=== PATIENT | female | born 1985 | race Caucasian/White ===

== ENCOUNTER → 2016-10-02 | Day surgery (SDC) | payer OTHER ==
[~2016-10-02] MED LIST: CLON1TAB PO; FENTANYL PF 100 MCG/2 ML VIAL. IV PRN; HYDROMORPHONE 2 MG/ML VIAL. IV PRN; IV RINGERS,LACTATED 1000ML 1,000 ML IV SCH; LIDOCAINE 1% 1 ML SYRINGE. ID PRN; LIDOCAINE 2% PF Vial for OR 5 ML VIAL. ONE; LURA40TA PO; MORPHINE SULFATE 2 MG/ML DISP.SYRIN. IV PRN; ONDANSETRON PF 4 MG/2 ML VIAL. IV PRN; PROCHLORPERAZINE 10 MG/2 ML VIAL. IV PRN; PROPOFOL 20 ML IV ONE
[2016-10-02 08:08] LABS: NEG OBC UR NEG; POS OBC UR POS
[2016-10-02 09:40] VITALS: BP 113/73
== END | disposition home or self-care (01) ==
LOC: ENDOS 07:08
PROVIDERS: ATTEND Internal Medicine Gastroenterology
DX: K64.0 First degree hemorrhoids (principal); I10 Essential (primary) hypertension; F41.9 Anxiety disorder, unspecified; F32.9 Major depressive disorder, single episode, unspecified; Z87.898 Personal history of other specified conditions; Z83.3 Family history of diabetes mellitus; Z72.89 Other problems related to lifestyle; Z85.3 Personal history of malignant neoplasm of breast
CPT/HCPCS: 45378; 81025; J2704

== ENCOUNTER 2016-10-10 14:22 | Inpatient (IN) | payer OTHER ==
[~2016-10-10] VITALS: Ht 162.6 cm; Wt 69.9 kg
[~2016-10-10 14:22] MED LIST changes: -FENTANYL PF 100 MCG/2 ML VIAL. IV PRN; -HYDROMORPHONE 2 MG/ML VIAL. IV PRN; -IV RINGERS,LACTATED 1000ML 1,000 ML IV SCH; -LIDOCAINE 1% 1 ML SYRINGE. ID PRN; -LIDOCAINE 2% PF Vial for OR 5 ML VIAL. ONE; -MORPHINE SULFATE 2 MG/ML DISP.SYRIN. IV PRN; -ONDANSETRON PF 4 MG/2 ML VIAL. IV PRN; -PROCHLORPERAZINE 10 MG/2 ML VIAL. IV PRN; -PROPOFOL 20 ML IV ONE
[2016-10-10 17:10] VITALS: BP 147/94
[2016-10-10] MEDS ORDERED: ONDA4TAB10 PO (18:38)
[2016-10-10] MEDS ORDERED: TRAZ50TA15 PO (18:39)
[2016-10-10] MEDS ORDERED: IBUP-1060 PO (18:39)
[2016-10-10] MEDS ORDERED: KETOROLAC 15 MG/ML VIAL. IV PRN (18:45)
[2016-10-10] MEDS ORDERED: ONDANSETRON PF 4 MG/2 ML VIAL. IV PRN (18:45)
[2016-10-10] MEDS ORDERED: DIPHENHYDRAMINE 50 MG/ML VIAL IVP PRN (18:45)
[2016-10-10 19:00] VITALS: BP 143/93
[2016-10-10] MEDS ORDERED: KETOROLAC TROMETHAMINE 30 MG/ML SYRINGE. IV PRN (19:17)
[2016-10-10] MEDS: PIPERACILLIN/TAZOBACTAM 4.5 GM in IV NORMAL SALINE 100ML 100 ML IV SCH (19:55)
[2016-10-10] MEDS: HYDROMORPHONE 2 MG/ML VIAL. IV PRN (19:55)
[2016-10-10] MEDS ORDERED: PROMETHAZINE 25 MG in IV NORMAL SALINE 50ML 50 ML IV PRN (22:15)
[2016-10-10 23:00] VITALS: BP 134/89
[2016-10-10] MEDS: CLONAZEPAM 1 MG TABLET PO PRN (23:17)
[2016-10-10] MEDS: LORAZEPAM 2 MG/ML VIAL IV PRN (23:32)
--- NOTE | 2016-10-11 01:49 | DS ---
DATE OF DISCHARGE: HISTORY OF PRESENT ILLNESS: The patient was admitted with left thigh abscess that was apparently incised at the Emergency Room of [facility], was discharged home. However, she continued to have severe pain, redness, tenderness, and was admitted here on 10/08/2016. We did actually ultrasound at that time, which did not show any drainable abscess; however, we repeated her ultrasound this morning and it showed that she has an elongated hypoechoic subcutaneous process that has developed, measuring approximately 3.2 x 3.9 x 0.7 cm in greatest dimension, it is oriented obliquely, extending approximately 2.5 cm deep to the skin surface, appearance is compatible with complex fluid such as an abscess or hematoma. We did start her on IV antibiotic in the form of Zyvox and Zosyn, and given that we do not have an operating room here, decision was made to transfer her to [facility] to consult the surgical team as well as the Infectious Disease team. PHYSICAL EXAMINATION: GENERAL: When I saw her today, she looked well and was clearly in no apparent respiratory distress, pale, but no jaundice, cyanosis or thyromegaly. No jugular venous distension. No limb edema. VITAL SIGNS: Her heart rate was 84, blood pressure was 114/78, temperature was 97.9, respiratory rate was 18 and oxygen saturation was 97% on room air. The rest of clinical examination is unremarkable. LABORATORY DATA: Her lab work showed a white cell count down to 6300, hemoglobin 10.4, hematocrit 30.9, MCV 91, and platelet count 235,000. Chemistries showed a serum sodium of 139, potassium of 3.6, chloride of 105, bicarbonate of 28, anion gap of 6, BUN of 3, creatinine of 0.7, estimated GFR was 98 mL per minute. Her glucose 116, calcium was 8. Total bilirubin, AST, ALT, alkaline phosphatase are normal. Total protein was 6.5, albumin 2.7. ASSESSMENT AND PLAN: Cellulitis and abscess in the inner aspect of the left thigh. The plan is to transfer to [facility], continue with IV antibiotic, consult the surgical team for incision and drainage as well as the Infectious Disease team, and hopefully, she can be discharged home to continue her IV antibiotics as an outpatient. BROOKE VENCES MD DR: DOMINIQUE/zach JOB#: [id number] / [id number]
[2016-10-11 03:00] VITALS: BP 136/79
[2016-10-11 05:20] LABS: BASO % 1 % (0-3); EOS % 8 % (0-3); HEMATOCRIT 32.8 % (36.0-47.0); LYMPH # 1.2 x10^3/uL (1.0-4.8); LYMPH % 20 % (24-48); MEAN CORPUSCULAR HEMOGLOBIN 30 pg (25-35); MEAN CORPUSCULAR HGB CONC 33 g/dL (31-37); MEAN CORPUSCULAR VOLUME 91 fL (79-100); MONO % 10 % (0-9); NEUT % 61 % (31-73); PLATELET COUNT 280 x10^3/uL (140-400); RED BLOOD COUNT 3.61 x10^6/uL (3.50-5.40); RED CELL DISTRIBUTION WIDTH 13.9 % (11.5-14.5); WHITE BLOOD COUNT 6.1 x10^3/uL (4.0-11.0)
[2016-10-11 05:29] LABS: INR 1.1 (0.8-1.1); PROTHROMBIN TIME PATIENT 13.7 SEC (11.7-14.0)
[2016-10-11 05:38] LABS: ALBUMIN 2.8 g/dL (3.4-5.0); ALBUMIN/GLOBULIN RATIO 0.8 (1.0-1.7); CALCIUM 8.6 mg/dL (8.5-10.1); CREATININE 0.8 mg/dL (0.6-1.0); GFR 84.2; POTASSIUM 4.5 mmol/L (3.5-5.1); TOTAL BILIRUBIN 0.3 mg/dL (0.2-1.0); TOTAL PROTEIN 6.2 g/dL (6.4-8.2)
[2016-10-11] MEDS: PIPERACILLIN/TAZOBACTAM 4.5 GM in IV NORMAL SALINE 100ML 100 ML IV SCH (06:03)
[2016-10-11 07:57] VITALS: BP 125/78
[2016-10-11] MEDS ORDERED: LURASIDONE 40 MG TABLET. PO SCH (08:00)
[2016-10-11] MEDS: CLONAZEPAM 1 MG TABLET PO PRN (08:03)
[2016-10-11] MEDS: LORAZEPAM 2 MG/ML VIAL IV PRN (08:07)
--- NOTE | 2016-10-11 08:17 | PDOC2 ---
YONG ALVARADO Cosme [employer] 10/11/16 0817: CONSULT Date of Consult Date of Consult DATE: 10/11/16 TIME: 08:10 Reason for Consult Reason for Consult: thigh abscess Referring Physician Referring Physician: Dr Brandon Identification/Chief Complaint Chief Complaint thigh abscess Source Source: Chart review, Patient History of Present Illness Reason for Visit: 4 day history of thigh abscess. Had it lanced in ER at [facility], however continued to swell and cause pain. She was admitted to [facility], found by US to have a abscess. Sent to [facility] for surgery. Reports no history of skin infections, no eliciting events Past Medical History Cardiovascular: HTN Heme/Onc: Cancer (breast) Psych: Anxiety, Bipolar, Depression Past Surgical History Past Surgical History: Other (breast reconstruction ) Family History Family History: Other (noncontributory to current illness ) Social History <1 pack per day ALCOHOL: none Drugs: None Lives: Alone Current Medications Current Medications Current Medications Clonazepam (Klonopin) 1 mg PRN BID PRN PO ANXIETY / AGITATION Last administered on 10/11/16 08:03; Start 10/10/16 at 18:45 Diphenhydramine HCl (Benadryl) 25 mg PRN Q6HRS PRN IVP ITCHING; Start 10/10/16 at 18:45 Hydromorphone HCl (Dilaudid) 2 mg PRN Q2HR PRN IV PAIN Last administered on 10/10 19:55; Start 10/10/16 at 18:45 Ketorolac Tromethamine 30 mg 30 mg PRN Q6HRS PRN IV PAIN; Start 10/10/16 at 18: 45; Stop 10/10/16 at 19:17; Status DC Linezolid (Zyvox Premix) 300 ml @ 300 mls/hr Q12HR IV Last administered on 10/10 21:12; Start 10/10/16 at 21:00 Lorazepam (Ativan) 1 mg PRN Q8HRS PRN IV ANXIETY / AGITATION Last administered on 10/11/16 08:07; Start 10/10/16 at 18:45 Lurasidone HCl (Latuda) 40 mg DAILYWBKFT PO ; Start 10/11/16 at 08:00 Ondansetron HCl 4 mg 4 mg PRN Q8HRS PRN IV NAUSEA/VOMITING Last administered on 10/11/16 05:19; Start 10/10/16 at 18:45 Piperacillin Sod/ Tazobactam Sod/ Sodium Chloride (Zosyn/Iv Sodium Chloride 0.9 % 100ml) 100 ml @ 200 mls/hr Q8HRS IV Last administered on 10/11/16 06:03; Start 10/10/16 at 20:00 Ketorolac Tromethamine 30 mg 30 mg PRN Q6HRS PRN IV PAIN Last administered on 05:10; Start 10/10/16 at 19:17; Stop 10/15/16 at 18:44 Promethazine HCl/ Sodium Chloride (Phenergan/Iv Sodium Chloride 0.9% 50ml) 51 ml @ 151.5 mls/ hr PRN Q6HRS PRN IV NAUSEA/VOMITING 2ND CHOICE; Start 10/10/16 at 22:15 Active Scripts Active Reported Trazodone Hcl 50 Mg Tablet 75 Mg PO HS Ibuprofen 800 Mg Tablet 800 Mg PO PRN Q8HRS PRN Zofran Odt (Ondansetron) 4 Mg Tab.rapdis 4 Mg PO BID PRN Latuda (Lurasidone Hcl) 40 Mg Tablet 40 Mg PO HS Klonopin (Clonazepam) 1 Mg Tablet 1 Mg PO PRN QID PRN Allergies Allergies: Coded Allergies: vancomycin (Verified Adverse Reaction, Intermediate, Rash, 10/10/16) "Red man" rxn ROS General: YES: Chills, Other (fevers) PSYCHOLOGICAL ROS: YES: Anxiety, Depression Eyes: No Blurry vision, No Double vision HEENT: No: Heacaches, Sore Throat Hematological and Lymphatic: No: Bleeding Problems, Blood Clots Respiratory: No: Cough, Shortness of breath Cardiovascular: No Chest Pain, No Palpitations Gastrointestinal: No Nausea, No Vomiting Genitourinary: No Dysuria, No Hematuria Musculoskeletal: Yes Muscle Pain, No Joint Pain Neurological: No Impaired Coord/balance, No Numbness/Tingling Skin: Yes Other (see hpi) Physical Exam General: Alert, Oriented X3, Cooperative, No acute distress HEENT: PERRLA, Mucous membr. moist/pink Lungs: Clear to auscultation, Normal air movement Heart: Regular rate, Normal S1, Normal S2, No murmurs Abdomen: Soft, No tenderness, Other (noted scars from breast reconstruction surgery ) Extremities: No clubbing, No cyanosis Skin: Other (left medial thigh with erythema, induration, and fluctunace, tender to touch) Neuro: Normal gait, Normal speech Psych/Mental Status: Mental status NL, Mood NL Vitals VITALS Vital Signs Date Time Temp Pulse Resp B/P Pulse Ox O2 Delivery O2 Flow Rate FiO2 10/11/16 07:57 97.7 97 20 125/78 98 Room Air 97.7 Labs Labs Laboratory Tests Test 10/11/16 04:50 White Blood Count 6.1x10^3/uL (4.0-11.0) Red Blood Count 3.61x10^6/uL (3.50-5.40) Hemoglobin 11.0g/dL (12.0-15.5) Hematocrit 32.8% (36.0-47.0) Mean Corpuscular Volume 91fL (79-100) Mean Corpuscular Hemoglobin 30pg (25-35) Mean Corpuscular Hemoglobin Concent 33g/dL (31-37) Red Cell Distribution Width 13.9% (11.5-14.5) Platelet Count 280x10^3/uL (140-400) Neutrophils (%) (Auto) 61% (31-73) Lymphocytes (%) (Auto) 20% (24-48) Monocytes (%) (Auto) 10% (0-9) Eosinophils (%) (Auto) 8% (0-3) Basophils (%) (Auto) 1% (0-3) Neutrophils # (Auto) 3.7x10^3uL (1.8-7.7) Lymphocytes # (Auto) 1.2x10^3/uL (1.0-4.8) Monocytes # (Auto) 0.6x10^3/uL (0.0-1.1) Eosinophils # (Auto) 0.5x10^3/uL (0.0-0.7) Basophils # (Auto) 0.0x10^3/uL (0.0-0.2) Prothrombin Time 13.7SEC (11.7-14.0) Prothromb Time International Ratio 1.1 (0.8-1.1) Activated Partial Thromboplast Time 41SEC (24-38) Sodium Level 141mmol/L (136-145) Potassium Level 4.5mmol/L (3.5-5.1) Chloride Level 105mmol/L (98-107) Carbon Dioxide Level 28mmol/L (21-32) Anion Gap 8 (6-14) Blood Urea Nitrogen 3mg/dL (7-20) Creatinine 0.8mg/dL (0.6-1.0) Estimated GFR (Cockcroft-Gault) 84.2 BUN/Creatinine Ratio 4 (6-20) Glucose Level 91mg/dL (70-99) Calcium Level 8.6mg/dL (8.5-10.1) Total Bilirubin 0.3mg/dL (0.2-1.0) Aspartate Amino Transf (AST/SGOT) 10U/L (15-37) Alanine Aminotransferase (ALT/SGPT) 15U/L (14-59) Alkaline Phosphatase 76U/L (46-116) Total Protein 6.2g/dL (6.4-8.2) Albumin 2.8g/dL (3.4-5.0) Albumin/Globulin Ratio 0.8 (1.0-1.7) Laboratory Tests Test 10/11/16 04:50 White Blood Count 6.1x10^3/uL (4.0-11.0) Red Blood Count 3.61x10^6/uL (3.50-5.40) Hemoglobin 11.0g/dL (12.0-15.5) Hematocrit 32.8% (36.0-47.0) Mean Corpuscular Volume 91fL (79-100) Mean Corpuscular Hemoglobin 30pg (25-35) Mean Corpuscular Hemoglobin Concent 33g/dL (31-37) Red Cell Distribution Width 13.9% (11.5-14.5) Platelet Count 280x10^3/uL (140-400) Neutrophils (%) (Auto) 61% (31-73) Lymphocytes (%) (Auto) 20% (24-48) Monocytes (%) (Auto) 10% (0-9) Eosinophils (%) (Auto) 8% (0-3) Basophils (%) (Auto) 1% (0-3) Neutrophils # (Auto) 3.7x10^3uL (1.8-7.7) Lymphocytes # (Auto) 1.2x10^3/uL (1.0-4.8) Monocytes # (Auto) 0.6x10^3/uL (0.0-1.1) Eosinophils # (Auto) 0.5x10^3/uL (0.0-0.7) Basophils # (Auto) 0.0x10^3/uL (0.0-0.2) Prothrombin Time 13.7SEC (11.7-14.0) Prothromb Time International Ratio 1.1 (0.8-1.1) Activated Partial Thromboplast Time 41SEC (24-38) Sodium Level 141mmol/L (136-145) Potassium Level 4.5mmol/L (3.5-5.1) Chloride Level 105mmol/L (98-107) Carbon Dioxide Level 28mmol/L (21-32) Anion Gap 8 (6-14) Blood Urea Nitrogen 3mg/dL (7-20) Creatinine 0.8mg/dL (0.6-1.0) Estimated GFR (Cockcroft-Gault) 84.2 BUN/Creatinine Ratio 4 (6-20) Glucose Level 91mg/dL (70-99) Calcium Level 8.6mg/dL (8.5-10.1) Total Bilirubin 0.3mg/dL (0.2-1.0) Aspartate Amino Transf (AST/SGOT) 10U/L (15-37) Alanine Aminotransferase (ALT/SGPT) 15U/L (14-59) Alkaline Phosphatase 76U/L (46-116) Total Protein 6.2g/dL (6.4-8.2) Albumin 2.8g/dL (3.4-5.0) Albumin/Globulin Ratio 0.8 (1.0-1.7) Assessment/Plan Assessment/Plan left thigh abscess anxiety, depression tobaccoism plan for I&D today EPI LOEV MD 10/11/16 1684: CONSULT Allergies Allergies: Coded Allergies: vancomycin (Verified Adverse Reaction, Intermediate, Rash, 10/10/16) "Red man" rxn Assessment/Plan Assessment/Plan Patient seen and examined by me. Several days of left thigh pain and swelling had drainage in ED 4 days ago but has returned. Left thigh mass erythema. Left thigh abscess plan I&D. YONG ALVARADO [employer] Oct 11, 2016 08:17 EPI LOVE MD Oct 11, 2016 08:32
[2016-10-11] MEDS ORDERED: ONDANSETRON PF 4 MG/2 ML VIAL. ONE (08:27)
[2016-10-11] MEDS ORDERED: DEXAMETHASONE SOD PHOS 20 MG/5 ML VIAL. ONE (08:27)
[2016-10-11] MEDS ORDERED: FENTANYL PF 100 MCG/2 ML VIAL. ONE (08:27)
[2016-10-11] MEDS ORDERED: PROPOFOL 20 ML IV ONE (08:27)
[2016-10-11] MEDS ORDERED: SEVOFLURANE 31 TO 60 MINUTES. IH ONE (08:27)
[2016-10-11] MEDS ORDERED: FAMOTIDINE 20 MG/2 ML VIAL ONE (08:45)
[2016-10-11] MEDS ORDERED: LIDOCAINE 2% 100 MG/5 ML DISP.SYRIN. ONE (08:45)
[2016-10-11] MEDS ORDERED: BUPIVACAINE-EPI 0.25%-1:200000 MPF 30 ML VIAL. ONE (08:52)
--- NOTE | 2016-10-11 09:02 | PDOC ---
BRIEF OPERATIVE NOTE Date: Oct 11, 2016 Pre-Op Diagnosis Left thigh abscess Post-Op Diagnosis Same Procedure Performed I&D Left thigh abscess Surgeon Bryson Anesthesia Type: General Blood Loss 10ml Specimens Obtained Cultures Findings as above Complications None Additional Remarks Patient maybe D/C today to F/U with wound care daily packing [facility] outpatient as she gets her outpatient IV antibiotic. EPI LOVE MD Oct 11, 2016 09:02
--- NOTE | 2016-10-11 09:04 | DISCH ---
DISCHARGE INSTRUCTIONS Condition on Discharge Condition on Discharge: Stable Activity After Discharge Activity Instructions for Disc: Activity as tolerated Diet after Discharge Diet after Discharge: Regular Contacting the DRAngie after DC Call your doctor for: If your condition worsens Follow-Up Follow up with: Dr Love on Sunday 10/15 EPI LOVE MD Oct 11, 2016 09:04
[2016-10-11] MEDS ORDERED: IV RINGERS,LACTATED 1000ML 1,000 ML IV SCH ×2 (09:17→09:19)
[2016-10-11] MEDS ORDERED: LIDOCAINE 1% 1 ML SYRINGE. ID PRN ×2 (09:30)
[2016-10-11] MEDS ORDERED: MORPHINE SULFATE 2 MG/ML DISP.SYRIN. IV PRN ×2 (09:30)
[2016-10-11] MEDS ORDERED: PROCHLORPERAZINE 10 MG/2 ML VIAL. IV PRN ×2 (09:30)
[2016-10-11] MEDS ORDERED: HYDROMORPHONE 2 MG/ML VIAL. IV PRN ×2 (09:30)
[2016-10-11] MEDS ORDERED: ONDANSETRON PF 4 MG/2 ML VIAL. IV PRN ×2 (09:30)
[2016-10-11] MEDS ORDERED: FENTANYL PF 100 MCG/2 ML VIAL. IV PRN (09:30)
[2016-10-11] MEDS: FENTANYL PF 100 MCG/2 ML VIAL. IV PRN ×2 (09:52→10:06)
[2016-10-11 10:20] VITALS: BP 118/80
[2016-10-11 10:30] VITALS: BP 136/76
[2016-10-11 10:45] VITALS: BP 124/89
--- NOTE | 2016-10-11 10:56 | PDOC ---
Infectious Disease Note ROS ROS GEN: Denies fevers, chills, sweats HEENT: Denies blurred vision, sore throat CV: Denies chest pain RESP: Denies shortness of air, cough GI: Denies n/v/d NEURO: Denies confusion, dizziness MSK: Denies weakness, joint pain/swelling Vital Sign Vital Signs Vital Signs Date Time Temp Pulse Resp B/P Pulse Ox O2 Delivery O2 Flow Rate FiO2 10/11/16 10:10 96.9 78 20 154/97 99 Room Air 96.9 10/11/16 09:19 10 Physical Exam PHYSICAL EXAM GENERAL: NAD, Alert HEENT: PERRL, OC/OP NECK: Supple, no JVD, no LN LUNGS: Clear HEART: S1S2, no gallop, no murmur ABD: Soft, NT, no organomegaly, no rebound EXT: No edema, no cyanosis RANCH HAND LIVESTOCK: Alert, oriented x 3, no focal neurologic deficit SKIN: No rash IV: ok Labs Lab Laboratory Tests Test 10/11/16 04:50 White Blood Count 6.1x10^3/uL (4.0-11.0) Red Blood Count 3.61x10^6/uL (3.50-5.40) Hemoglobin 11.0g/dL (12.0-15.5) Hematocrit 32.8% (36.0-47.0) Mean Corpuscular Volume 91fL (79-100) Mean Corpuscular Hemoglobin 30pg (25-35) Mean Corpuscular Hemoglobin Concent 33g/dL (31-37) Red Cell Distribution Width 13.9% (11.5-14.5) Platelet Count 280x10^3/uL (140-400) Neutrophils (%) (Auto) 61% (31-73) Lymphocytes (%) (Auto) 20% (24-48) Monocytes (%) (Auto) 10% (0-9) Eosinophils (%) (Auto) 8% (0-3) Basophils (%) (Auto) 1% (0-3) Neutrophils # (Auto) 3.7x10^3uL (1.8-7.7) Lymphocytes # (Auto) 1.2x10^3/uL (1.0-4.8) Monocytes # (Auto) 0.6x10^3/uL (0.0-1.1) Eosinophils # (Auto) 0.5x10^3/uL (0.0-0.7) Basophils # (Auto) 0.0x10^3/uL (0.0-0.2) Prothrombin Time 13.7SEC (11.7-14.0) Prothromb Time International Ratio 1.1 (0.8-1.1) Activated Partial Thromboplast Time 41SEC (24-38) Sodium Level 141mmol/L (136-145) Potassium Level 4.5mmol/L (3.5-5.1) Chloride Level 105mmol/L (98-107) Carbon Dioxide Level 28mmol/L (21-32) Anion Gap 8 (6-14) Blood Urea Nitrogen 3mg/dL (7-20) Creatinine 0.8mg/dL (0.6-1.0) Estimated GFR (Cockcroft-Gault) 84.2 BUN/Creatinine Ratio 4 (6-20) Glucose Level 91mg/dL (70-99) Calcium Level 8.6mg/dL (8.5-10.1) Total Bilirubin 0.3mg/dL (0.2-1.0) Aspartate Amino Transf (AST/SGOT) 10U/L (15-37) Alanine Aminotransferase (ALT/SGPT) 15U/L (14-59) Alkaline Phosphatase 76U/L (46-116) Total Protein 6.2g/dL (6.4-8.2) Albumin 2.8g/dL (3.4-5.0) Albumin/Globulin Ratio 0.8 (1.0-1.7) Objective Assessment Left thigh abscess s/p I and D 10/11. Local I and D in [facility] ER 10/07 Vanc allergy ? alex's with flushing of face neck MRSA - tetra/zyvox/Bactrim 10/07 - Called [facility] d/w micro. [facility] micro with [facility] from 10/09 H/o breast CA Bipolar Plan Plan of Care D/c Zosyn Change to Po zyvox would treat for another 6 days # [id number] NANCI ROTHMAN MD Oct 11, 2016 10:56
[2016-10-11] MEDS: HYDROMORPHONE 2 MG/ML VIAL. IV PRN (11:28)
[2016-10-11] MEDS ORDERED: LINE600T PO (11:40)
[2016-10-11] MEDS ORDERED: OXYC-323 PO (11:41)
--- NOTE | 2016-10-11 11:57 | OP ---
DATE OF SURGERY: 10/11/2016 PREOPERATIVE DIAGNOSIS: Left thigh abscess. POSTOPERATIVE DIAGNOSIS: Left thigh abscess. PROCEDURE: Incision and drainage of the left thigh abscess. SURGEON: Saravanan Love M.D. INDICATIONS: The patient is a 31-year-old female who was admitted to the hospital with an enlarging abscess of the left thigh. Procedure of incision and drainage was explained to the patient in detail. Risks, benefits were also discussed including bleeding and infection. Alternatives of the procedure were also discussed with the patient who seemed to understand and gave a verbal consent to have the procedure performed. DESCRIPTION OF PROCEDURE: The patient was taken to the operating room and placed in the supine position. General anesthesia was initiated. Once the patient was asleep and intubated, her thigh and groin were prepped and draped in usual sterile fashion using Betadine scrub and solution. An area over the abscess was incised with an 11 blade scalpel. Copious amounts of purulent material were expressed. This was cultured. Wound was then irrigated with copious amounts of normal saline. Electrocautery was used for hemostasis. Once this has been thoroughly irrigated, the wound was packed with quarter inch iodoform Nu Gauze and dressed with ____ Medipore tape. The patient was awakened, extubated in the operating room, taken to recovery in stable condition. All sponge, instrument counts listed as correct. Estimated blood loss 10 mL. SARAVANAN LOVE MD DR: MORALES/zach JOB#: [id number] / [id number] henok Brandon Dr.
--- NOTE | 2016-10-11 13:50 | SSS ---
ADMIT DATE: HISTORY OF PRESENT ILLNESS: The patient is a 31-year-old female patient, who was seen initially at the Emergency Room of [facility]. It was last there and was discharged home to continue with pain medications and oral antibiotic. However, she came back to [facility] Emergency Room with a complaint of severe pain, redness, tenderness and was admitted on, 10/08/2016. An ultrasound was done initially showed no evidence of drainable abscess; however, we repeat her ultrasound yesterday morning and it showed that she has an elongated hypoechoic subcutaneous process that has developed, measuring approximately 3.2 x 3.9 x 0.7 cm in greatest dimension, it is oriented obliquely, extending approximately 2.5 cm deep to the skin surface, appearance is compatible with complex fluid such as an abscess or hematoma. She has had the PICC line and was started on IV Zyvox and Zosyn. She has reacted to vancomycin. She did very well. She needs surgical incision, she was transferred to [facility] and was in fact seen by the surgical team and underwent incision and drainage of left thigh abscess and the specimen was sent for culture and sensitivity. She was seen also in consultation by the Infectious Disease Team and apparently the cultures from her abscess at [facility], grow methicillin-resistant Staphylococcus aureus sensitive to Zyvox and therefore, a decision was made to discharge her home to follow as an outpatient at [facility] on a daily basis to changes to continue with pain medication as well as antibiotics for at least 6 more days. PHYSICAL EXAMINATION: GENERAL: When I examined her today, she looked well and was clearly in no apparent respiratory distress, pale, but no jaundice, cyanosis or thyromegaly. No jugular venous distension. No limb edema. VITAL SIGNS: Her heart rate was 78, blood pressure 154/97, temperature was 96.9, respiratory rate was 20, and oxygen saturation was 99%. The rest of clinical examination is unremarkable ____ left thigh abscess is covered with dressing. LABORATORY DATA: Her lab work this morning showed a white cell count of 6000, hemoglobin 11, hematocrit 33, MCV 91, and platelet count of 280,000. Her chemistry showed a serum sodium 141, potassium 4.5, chloride 105, bicarbonate 28, anion gap of 8, BUN 3, creatinine 0.8, estimated GFR was 84 mL per minute. Her glucose was 91, calcium was 8.6. Total bilirubin, AST, ALT, alkaline phosphatase were normal. Her total protein was 6.2, albumin 2.8. Her prothrombin time was 13.7, INR 1.1, aPTT was 41. She will be discharged home to continue with Zyvox 600 mg twice a day for 6 more days, Percocet 1-2 tablets every 6 hours as needed. She should follow at the [facility] for daily dressing changes. FINAL DISCHARGE DIAGNOSES: Left thigh abscess, status post incision and drainage, growing methicillin-resistant Staphylococcus aureus sensitive to Zyvox. BROOKE VENCES MD DR: DOMINIQUE/zach JOB#: [id number] / [id number]
[2016-10-11] MEDS ORDERED: LINEZOLID 600 MG TABLET PO SCH (21:00)
--- NOTE | 2016-10-12 06:37 | CONS ---
DATE OF CONSULTATION: 10/11/2016 ROOM: 428. REQUESTING PHYSICIAN: Jason Brandon MD. REASON FOR CONSULTATION: Abscess. HISTORY OF PRESENT ILLNESS: The patient is a pleasant 31-year-old female with history of bipolar disease, also has a history of breast cancer in 2014, underwent bilateral mastectomies and reconstructions with multiple procedures. She did not receive any chemotherapy or radiation. Friday, she noted her left thigh has somewhat of a swollen area and became more painful. She presented to [facility] on the and had her wound lanced and was discharged on Bactrim. Cultures were obtained. Despite taking the Bactrim, Friday, she had increasing pain. She was having fevers, chills, sweats, nausea, vomiting, some diarrhea and dehydration. She went to see her primary care physician initially and she looked somewhat lethargic and tired. He referred her to [facility] where she was admitted and evaluated and also had some drainage obtained from her wound and she was transferred to [facility]. She had been given some vancomycin, but apparently she has some flushing and she was placed on Zyvox and Zosyn. She is now status post I and D of the left thigh abscess from this morning. Her wound is now currently dressed postoperatively. PAST MEDICAL HISTORY: Positive for above-mentioned breast cancer. Also, history of bipolar disorder. PAST SURGICAL HISTORY: Positive for tonsillectomy, adenoidectomies, oral surgery and the bilateral mastectomies and reconstruction. REVIEW OF SYSTEMS: Otherwise negative except for mentioned above. ALLERGIES: LISTED VANCOMYCIN, BUT I BELIEVE IT IS MORE OF RED MAN SYNDROME IT CAUSED FLUSHING OF HER FACE AND NECK. SOCIAL HISTORY: She is a smoker. She does not work. Denies any alcohol. FAMILY HISTORY: Negative for breast cancer. States that her grandfather did have an infection on his foot, but unsure of what the organisms were, but he was a diabetic. CURRENT MEDICATIONS: IV Zyvox and Zosyn. She is on Toradol, Dilaudid, Pepcid, Latuda. Other meds are available, I have reviewed in the chart. PHYSICAL EXAMINATION: VITAL SIGNS: She is afebrile, temperature 96.9, pulse 78, respirations 20, blood pressure 154/97, satting 99% on room air. CONSTITUTIONAL: She is pleasant, cooperative. She is in no acute distress. HEENT: Pupils are equal and reactive. She has normal conjunctivae. Oral cavity, oropharynx was clear. NECK: Supple, no JVD. LUNGS: Clear to auscultation bilaterally. HEART: S1, S2. ABDOMEN: Soft, nontender, nondistended with positive bowel sounds. EXTREMITIES: No clubbing, cyanosis. Her left thigh is dressed. There is an outline from previous area of erythema that is completely resolved. SKIN: Warm to touch. She does have tattoos. NEUROLOGIC: She is nonfocal and appropriate. Answers questions appropriately, moves all extremities. LABORATORY DATA: White count 6.1, hemoglobin 11, platelets of 280, neutrophils 61, lymphs are 20. Glucose 91, creatinine of 0.8 with normal liver function study tests. IMPRESSION: 1. Left thigh abscess, status post I and D today, had local I and D in [facility] on the . 2. 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 3. Positive methicillin-resistant Staphylococcus aureus culture. This was discussed with Missael rivera this morning, actually with [facility], which is sensitive to tetracycline and Zyvox as well as Bactrim from the . 4. We did discuss with [facility] as well and she has a gram-positive cocci, currently growing, identification is pending. 5. History of breast cancer as mentioned above. 6. Bipolar. RECOMMENDATIONS: For now, discontinue the Zosyn. We will change to Zyvox, would treat for another 6 days. Thank you for allowing me to participate in the patient's care. If you have any questions, please do not hesitate to contact me. NANCI ROTHMAN MD DR: ANETTE/zach JOB#: [id number] / [id number]
== END 2016-10-11 14:15 | disposition home or self-care (01) | DRG 603 ==
LOC: 4 NORTH 16:58
PROVIDERS: ADMIT Internal Medicine; ATTEND Internal Medicine
PROC: 0Y9D0ZZ Drainage of Left Upper Leg, Open Approach (ICD-10-PCS; principal; 2016-10-11 09:00)
DX: L02.416 Cutaneous abscess of left lower limb (principal); E24.9 Cushing's syndrome, unspecified; L03.116 Cellulitis of left lower limb; I10 Essential (primary) hypertension; F41.9 Anxiety disorder, unspecified; Z60.2 Problems related to living alone; B95.62 Methicillin resistant Staphylococcus aureus infection as the cause of diseases classified elsewhere; F31.9 Bipolar disorder, unspecified; F17.200 Nicotine dependence, unspecified, uncomplicated; Z83.3 Family history of diabetes mellitus; Z85.3 Personal history of malignant neoplasm of breast; Z88.1 Allergy status to other antibiotic agents; Z90.13 Acquired absence of bilateral breasts and nipples
CPT/HCPCS: 36415; 80053; 85027; 85610; 85730; 87071; 87075; 87205; J0780; J1100; J1170; J1885; J2020; J2060; J2405; J2543; J2704; J3010; J7120; S0028

== ENCOUNTER 2017-01-26 21:42 | Observation (INO) | payer SELFPAY ==
[~2017-01-26] VITALS: Ht 160 cm; Wt 56.8 kg
[~2017-01-26 21:42] MED LIST changes: +IBUP-1060 PO; +LINE600T PO; +ONDA4TAB10 PO; +OXYC-323 PO; +TRAZ50TA15 PO
[2017-01-26 23:00] LABS: BASO # 0.1 x10^3/uL (0.0-0.2); BASO % 1 % (0-3); EOS % 3 % (0-3); HEMATOCRIT 42.3 % (36.0-47.0); HEMOGLOBIN 14.4 g/dL (12.0-15.5); LYMPH # 2.4 x10^3/uL (1.0-4.8); LYMPH % 25 % (24-48); MEAN CORPUSCULAR HEMOGLOBIN 31 pg (25-35); MEAN CORPUSCULAR HGB CONC 34 g/dL (31-37); MEAN CORPUSCULAR VOLUME 91 fL (79-100); MONO % 8 % (0-9); NEUT % 63 % (31-73); PLATELET COUNT 324 x10^3/uL (140-400); RED BLOOD COUNT 4.67 x10^6/uL (3.50-5.40); RED CELL DISTRIBUTION WIDTH 13.3 % (11.5-14.5); WHITE BLOOD COUNT 9.3 x10^3/uL (4.0-11.0)
[2017-01-26 23:17] LABS: ETHANOL < 10 mg/dL (0-10)
[2017-01-26 23:19] LABS: ALBUMIN 4.4 g/dL (3.4-5.0); CALCIUM 9.5 mg/dL (8.5-10.1); CREATININE 0.8 mg/dL (0.6-1.0); DIRECT BILIRUBIN 0.1 mg/dL (0.0-0.2); GFR 84.2; TOTAL BILIRUBIN 0.8 mg/dL (0.2-1.0); TOTAL PROTEIN 8.8 g/dL (6.4-8.2)
[2017-01-26 23:21] LABS: POTASSIUM 2.9 mmol/L (3.5-5.1)
--- NOTE | 2017-01-26 23:55 | PHYS DOC ---
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 She reports feeling depressed recently and doing this as a way to try to harm herself. Currently she is feeling fine and does not have any symptoms. Onset prior to arrival. Location generalized. Duration intermittent. No alleviating or exacerbating factors. Review of systems is negative for chest pain shortness of breath nausea vomiting abdominal pain fevers chills. All other review of systems is negative unless otherwise noted in history of present illness. Pertinent physical exam findings: Normal physical exam. ED course: 31-year-old female presenting with an overdose attempt with Ativan and cocaine. Patient was mentating appropriately during my examination however was currently suicidal. Blood work obtained along with urinalysis and test. CBC unremarkable. Chemistry panel shows low potassium. This was repleted in the emergency department with IV potassium. Given the amount of medications taken she was admitted to the hospital with one to one for close monitoring. The psychiatric assessment team came down and evaluated her while she was in the emergency department. Review of Systems Review of Systems SEE ABOVE. Allergies Allergies Allergies Coded Allergies Type Severity Reaction Last Updated Verified I S O L A T I O N *CONTACT* Allergy Unknown 10/17/16 Yes vancomycin Adverse Reaction Intermediate Rash 10/10/16 Yes Physical Exam Physical Exam Constitutional: Well developed, well nourished, no acute distress, non-toxic appearance. HENT: Normocephalic, atraumatic, bilateral external ears normal, oropharynx moist, no oral exudates, nose normal. [] Eyes: PERRLA, EOMI, conjunctiva normal, no discharge. [] Neck: Normal range of motion, no tenderness, supple, no stridor. Cardiovascular:Heart rate regular rhythm, no murmur [] Lungs & Thorax: Bilateral breath sounds clear to auscultation [] Abdomen: Bowel sounds normal, soft, no tenderness, no masses, no pulsatile masses. Skin: Warm, dry, no erythema, no rash. [] Back: No tenderness, no CVA tenderness. [] Extremities: No tenderness, no cyanosis, no clubbing, ROM intact, no edema. Neurologic: Alert and oriented X 3, normal motor function, normal sensory function, no focal deficits noted. [] Psychologic: Affect normal, judgement normal, mood normal. [] Current Patient Data Lab Values Laboratory Tests Test 01/26/17 22:45 White Blood Count 9.3 x10^3/uL (4.0-11.0) Red Blood Count 4.67 x10^6/uL (3.50-5.40) Hemoglobin 14.4 g/dL (12.0-15.5) Hematocrit 42.3 % (36.0-47.0) Mean Corpuscular Volume 91 fL (79-100) Mean Corpuscular Hemoglobin 31 pg (25-35) Mean Corpuscular Hemoglobin Concent 34 g/dL (31-37) Red Cell Distribution Width 13.3 % (11.5-14.5) Platelet Count 324 x10^3/uL (140-400) Neutrophils (%) (Auto) 63 % (31-73) Lymphocytes (%) (Auto) 25 % (24-48) Monocytes (%) (Auto) 8 % (0-9) Eosinophils (%) (Auto) 3 % (0-3) Basophils (%) (Auto) 1 % (0-3) Neutrophils # (Auto) 5.8 x10^3uL (1.8-7.7) Lymphocytes # (Auto) 2.4 x10^3/uL (1.0-4.8) Monocytes # (Auto) 0.7 x10^3/uL (0.0-1.1) Eosinophils # (Auto) 0.3 x10^3/uL (0.0-0.7) Basophils # (Auto) 0.1 x10^3/uL (0.0-0.2) Sodium Level 138 mmol/L (136-145) Potassium Level 2.9 mmol/L (3.5-5.1) *L Chloride Level 103 mmol/L (98-107) Carbon Dioxide Level 27 mmol/L (21-32) Anion Gap 8 (6-14) Blood Urea Nitrogen 9 mg/dL (7-20) Creatinine 0.8 mg/dL (0.6-1.0) Estimated GFR (Cockcroft-Gault) 84.2 Glucose Level 90 mg/dL (70-99) Serum Osmolality 286 mOsm/Kg (279-304) Calcium Level 9.5 mg/dL (8.5-10.1) Total Bilirubin 0.8 mg/dL (0.2-1.0) Direct Bilirubin 0.1 mg/dL (0.0-0.2) Aspartate Amino Transferase (AST) 10 U/L (15-37) L Alanine Aminotransferase (ALT) 16 U/L (14-59) Alkaline Phosphatase 118 U/L (46-116) H Total Protein 8.8 g/dL (6.4-8.2) H Albumin 4.4 g/dL (3.4-5.0) Lipase 98 U/L (73-393) Salicylates Level 5.2 mg/dL (2.8-20.0) Salicylate Last Dose Date Salicylate Last Dose Time Acetaminophen Level < 2 mcg/ml (10-30) L Acetaminophen Last Dose Date Acetaminophen Last Dose Time Ethyl Alcohol Level < 10 mg/dL (0-10) Laboratory Tests 01/26/17 22:45 Laboratory Tests 01/26/17 22:45 EKG EKG [] Radiology/Procedures Radiology/Procedures [] Course & Med Decision Making Course & Med Decision Making Pertinent Labs and Imaging studies reviewed. (See chart for details) [] Dragon Disclaimer Dragon Disclaimer This electronic medical record was generated, in whole or in part, using a voice recognition dictation system. Departure Departure Impression: Primary Impression: Suicidal ideation Additional Impression: Hypokalemia Disposition: ADMITTED INPATIENT Admitting Physician: John Davis Condition: STABLE Referrals: GREGORIA LAZCANO MD (PCP) Problem Qualifiers PERICO DAMON MD Jan 26, 2017 23:55
[2017-01-27 00:27] LABS: BILIRUBIN,URINE NEGATIVE (NEG); GLUCOSE,URINE NEGATIVE (NEG); NITRITE,URINE NEGATIVE (NEG); PH,URINE 6.5; PROTEIN,URINE NEGATIVE (NEG-TRACE); UROBILINOGEN,URINE 0.2 mg/dL (0.2 mg/dL)
[2017-01-27 00:30] VITALS: BP 106/72
[2017-01-27] MEDS ORDERED: POTASSIUM CHLORIDE 10MEQ 100 ML IV SCH (00:30)
[2017-01-27 00:32] LABS: BARBITURATES NEG (NEG); BENZODIAZEPINES POS (NEG); CANNABINOIDS POS (NEG); COCAINE POS (NEG); METHADONE NEG (NEG); OPIATES NEG (NEG); PHENCYCLIDINE NEG (NEG)
[2017-01-27 00:33] LABS: BACTERIA,URINE 0 /HPF (0-FEW); RBC,URINE OCC /HPF (0-2); SQUAMOUS EPITHELIAL CELL,UR FEW /LPF; WBC,URINE OCC /HPF (0-4)
[2017-01-27] MEDS ORDERED: POTASSIUM CHLORIDE 20 MEQ TABLET.ER. PO ONE (01:30)
[2017-01-27] MEDS ORDERED: IV NORMAL SALINE 1000ML BAG 1,000 ML IV SCH (04:00)
[2017-01-27 04:20] VITALS: BP 84/50
[2017-01-27 05:06] LABS: BASO # 0.1 x10^3/uL (0.0-0.2); BASO % 1 % (0-3); EOS % 5 % (0-3); HEMOGLOBIN 12.8 g/dL (12.0-15.5); LYMPH # 2.2 x10^3/uL (1.0-4.8); LYMPH % 31 % (24-48); MEAN CORPUSCULAR HEMOGLOBIN 31 pg (25-35); MEAN CORPUSCULAR HGB CONC 34 g/dL (31-37); MEAN CORPUSCULAR VOLUME 91 fL (79-100); MONO % 9 % (0-9); NEUT % 54 % (31-73); PLATELET COUNT 269 x10^3/uL (140-400); RED CELL DISTRIBUTION WIDTH 13.2 % (11.5-14.5); WHITE BLOOD COUNT 7.2 x10^3/uL (4.0-11.0)
[2017-01-27 05:36] LABS: CREATININE 0.8 mg/dL (0.6-1.0); GFR 84.2; POTASSIUM 3.5 mmol/L (3.5-5.1)
--- NOTE | 2017-01-27 06:12 | EKG ---
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 RI6.01 Unconfirmed report No previous ECG available for comparison Electronically Signed On 01-27-2017 11:09:01 CDT by Mumtaz Bliss
--- NOTE | 2017-01-27 06:20 | ACF ---
Admission Forms Criteria PSYCHIATRIC DISORDERS Clinical Indications for Inpatient Care (Place 'X' for any and all applicable criteria): Ongoing inpatient care may be needed for 1 or more of the following(1)(2)(3)(4)( 6)(7)(8): [X]I. Danger to self or others not manageable at lower level of care. [ ]II. Grave disability (eg, inability to perform self care necessary at lower level of care) [ ]III. Agitation or inappropriate behavior interfering with care for primary condition (eg, attempting to discontinue lines or drains prematurely, unable to cooperate with respiratory care) [ ]IV. Severe disability or disorder indicated by ALL of the following: [ ]a) Severe behavioral health disorder-related symptoms or condition indicated by 1 or more of the following: [ ]i) Severe problem with cognition, memory, judgment, or impulse control [ ]ii) Severe clinical manifestations (eg, hallucinations, delusions, other acute psychotic symptoms, julianne, extreme agitation or anxiety) [ ]b) Patient management at lower level of care is not feasible until acute intervention or modification is initiated. Extended stay beyond goal length of stay for the primary condition may be needed untilALLof the following are present(1)(2)(3)(4)7)(23): [ ]a) Danger to self or others is absent or manageable at lower level of care [ ]b) Behavior crisis management, including physical or chemical restraints, is required and is not available at a lower level of care. [ ]c) Behavioral symptoms (e.g., agitation, somnolence, inappropriate behavior) are present, and are not manageable at a lower level of care. [ ]d) Patient cannot understand follow-up treatment and crisis plan. [ ]e) Provider and supports are sufficiently available at lower level of care. [ ]f) Patient can participate (e.g., verify absence of plan for harm) and is in needed of monitoring. The original [facility] [email or web address] content created by [facility] has been revised. The portions of the content which have been revised are identified through the use of italic text, and Demetrice Norwood[employer]y has neither reviewed nor approved the modified material. All other unmodified content is copyright [facility]. Please see references footnoted in the original [facility] 2015 Admission Criteria Met?: Yes JOSE SANCHEZ Jan 27, 2017 06:20
[2017-01-27 07:00] VITALS: BP 100/49
[2017-01-27] MEDS ORDERED: CLON1TAB PO (11:06)
[2017-01-27] MEDS ORDERED: ONDANSETRON ODT 4 MG TAB.RAPDIS. PO PRN (11:15)
--- NOTE | 2017-01-27 11:34 | PDOC ---
PROGRESS NOTES Chief Complaint Chief Complaint Suicidal Ideation History of Present Illness History of Present Illness Pt seen at bedside with PAT team Ar. At baseline VSS DW SS DW RN Plan is dc Vitals Vitals Vital Signs Date Time Temp Pulse Resp B/P (MAP) Pulse Ox O2 Delivery O2 Flow Rate FiO2 01/27/17 08:02 Room Air 01/27/17 07:00 97.9 85 18 100/49 (66) 99 97.9 Physical Exam General: Alert Heart: Regular rate Lungs: Clear Extremities: No clubbing Skin: No rashes Labs LABS Laboratory Tests Test 01/26/17 22:45 01/26/17 23:22 01/27/17 00:13 01/27/17 04:10 White Blood Count 9.3 x10^3/uL (4.0-11.0) 7.2 x10^3/uL (4.0-11.0) Red Blood Count 4.67 x10^6/uL (3.50-5.40) 4.20 x10^6/uL (3.50-5.40) Hemoglobin 14.4 g/dL (12.0-15.5) 12.8 g/dL (12.0-15.5) Hematocrit 42.3 % (36.0-47.0) 38.0 % (36.0-47.0) Mean Corpuscular Volume 91 fL (79-100) 91 fL (79-100) Mean Corpuscular Hemoglobin 31 pg (25-35) 31 pg (25-35) Mean Corpuscular Hemoglobin Concent 34 g/dL (31-37) 34 g/dL (31-37) Red Cell Distribution Width 13.3 % (11.5-14.5) 13.2 % (11.5-14.5) Platelet Count 324 x10^3/uL (140-400) 269 x10^3/uL (140-400) Neutrophils (%) (Auto) 63 % (31-73) 54 % (31-73) Lymphocytes (%) (Auto) 25 % (24-48) 31 % (24-48) Monocytes (%) (Auto) 8 % (0-9) 9 % (0-9) Eosinophils (%) (Auto) 3 % (0-3) 5 % (0-3) Basophils (%) (Auto) 1 % (0-3) 1 % (0-3) Neutrophils # (Auto) 5.8 x10^3uL (1.8-7.7) 3.9 x10^3uL (1.8-7.7) Lymphocytes # (Auto) 2.4 x10^3/uL (1.0-4.8) 2.2 x10^3/uL (1.0-4.8) Monocytes # (Auto) 0.7 x10^3/uL (0.0-1.1) 0.7 x10^3/uL (0.0-1.1) Eosinophils # (Auto) 0.3 x10^3/uL (0.0-0.7) 0.3 x10^3/uL (0.0-0.7) Basophils # (Auto) 0.1 x10^3/uL (0.0-0.2) 0.1 x10^3/uL (0.0-0.2) Sodium Level 138 mmol/L (136-145) 143 mmol/L (136-145) Potassium Level 2.9 mmol/L (3.5-5.1) 3.5 mmol/L (3.5-5.1) Chloride Level 103 mmol/L (98-107) 106 mmol/L (98-107) Carbon Dioxide Level 27 mmol/L (21-32) 29 mmol/L (21-32) Anion Gap 8 (6-14) 8 (6-14) Blood Urea Nitrogen 9 mg/dL (7-20) 10 mg/dL (7-20) Creatinine 0.8 mg/dL (0.6-1.0) 0.8 mg/dL (0.6-1.0) Estimated GFR (Cockcroft-Gault) 84.2 84.2 Glucose Level 90 mg/dL (70-99) 96 mg/dL (70-99) Serum Osmolality 286 mOsm/Kg (279-304) Calcium Level 9.5 mg/dL (8.5-10.1) 9.0 mg/dL (8.5-10.1) Total Bilirubin 0.8 mg/dL (0.2-1.0) Direct Bilirubin 0.1 mg/dL (0.0-0.2) Aspartate Amino Transf (AST/SGOT) 10 U/L (15-37) Alanine Aminotransferase (ALT/SGPT) 16 U/L (14-59) Alkaline Phosphatase 118 U/L (46-116) Total Protein 8.8 g/dL (6.4-8.2) Albumin 4.4 g/dL (3.4-5.0) Lipase 98 U/L (73-393) Salicylates Level 5.2 mg/dL (2.8-20.0) Salicylate Last Dose Date Salicylate Last Dose Time Acetaminophen Level < 2 mcg/ml (10-30) Acetaminophen Last Dose Date Acetaminophen Last Dose Time Ethyl Alcohol Level < 10 mg/dL (0-10) Bedside Urine HCG, Qualitative Hcg negative (Negative) Urine Collection Type Unknown Urine Color Yellow Urine Clarity Clear Urine pH 6.5 Urine Specific Mcgrann <=1.005 Urine Protein Negative mg/dL (NEG-TRACE) Urine Glucose (UA) Negative mg/dL (NEG) Urine Ketones (Stick) Negative mg/dL (NEG) Urine Blood Small (NEG) Urine Nitrite Negative (NEG) Urine Bilirubin Negative (NEG) Urine Urobilinogen Dipstick 0.2 mg/dL (0.2 mg/dL) Urine Leukocyte Esterase Trace (NEG) Urine RBC Occ /HPF (0-2) Urine WBC Occ /HPF (0-4) Urine Squamous Epithelial Cells Few /LPF Urine Bacteria 0 /HPF (0-FEW) Urine Mucus Slight /LPF Urine Opiates Screen Neg (NEG) Urine Methadone Screen Neg (NEG) Urine Barbiturates Neg (NEG) Urine Phencyclidine Screen Neg (NEG) Urine Amphetamine/Methamphetamine Neg (NEG) Urine Benzodiazepines Screen Pos (NEG) Urine Cocaine Screen Pos (NEG) Urine Cannabinoids Screen Pos (NEG) Urine Ethyl Alcohol Neg (NEG) Review of Systems Review of Systems no co Denies suicidal ideation today Assessment and Plan Assessmemt and Plan Problems Medical Problems: (1) Hypokalemia Status: Acute Discharge. See dictation Problems: Comment Review of Relevant I have reviewed the following items michael (where applicable) has been applied. Labs Laboratory Tests Test 01/26/17 22:45 01/26/17 23:22 01/27/17 00:13 01/27/17 04:10 White Blood Count 9.3 x10^3/uL (4.0-11.0) 7.2 x10^3/uL (4.0-11.0) Red Blood Count 4.67 x10^6/uL (3.50-5.40) 4.20 x10^6/uL (3.50-5.40) Hemoglobin 14.4 g/dL (12.0-15.5) 12.8 g/dL (12.0-15.5) Hematocrit 42.3 % (36.0-47.0) 38.0 % (36.0-47.0) Mean Corpuscular Volume 91 fL (79-100) 91 fL (79-100) Mean Corpuscular Hemoglobin 31 pg (25-35) 31 pg (25-35) Mean Corpuscular Hemoglobin Concent 34 g/dL (31-37) 34 g/dL (31-37) Red Cell Distribution Width 13.3 % (11.5-14.5) 13.2 % (11.5-14.5) Platelet Count 324 x10^3/uL (140-400) 269 x10^3/uL (140-400) Neutrophils (%) (Auto) 63 % (31-73) 54 % (31-73) Lymphocytes (%) (Auto) 25 % (24-48) 31 % (24-48) Monocytes (%) (Auto) 8 % (0-9) 9 % (0-9) Eosinophils (%) (Auto) 3 % (0-3) 5 % (0-3) Basophils (%) (Auto) 1 % (0-3) 1 % (0-3) Neutrophils # (Auto) 5.8 x10^3uL (1.8-7.7) 3.9 x10^3uL (1.8-7.7) Lymphocytes # (Auto) 2.4 x10^3/uL (1.0-4.8) 2.2 x10^3/uL (1.0-4.8) Monocytes # (Auto) 0.7 x10^3/uL (0.0-1.1) 0.7 x10^3/uL (0.0-1.1) Eosinophils # (Auto) 0.3 x10^3/uL (0.0-0.7) 0.3 x10^3/uL (0.0-0.7) Basophils # (Auto) 0.1 x10^3/uL (0.0-0.2) 0.1 x10^3/uL (0.0-0.2) Sodium Level 138 mmol/L (136-145) 143 mmol/L (136-145) Potassium Level 2.9 mmol/L (3.5-5.1) 3.5 mmol/L (3.5-5.1) Chloride Level 103 mmol/L (98-107) 106 mmol/L (98-107) Carbon Dioxide Level 27 mmol/L (21-32) 29 mmol/L (21-32) Anion Gap 8 (6-14) 8 (6-14) Blood Urea Nitrogen 9 mg/dL (7-20) 10 mg/dL (7-20) Creatinine 0.8 mg/dL (0.6-1.0) 0.8 mg/dL (0.6-1.0) Estimated GFR (Cockcroft-Gault) 84.2 84.2 Glucose Level 90 mg/dL (70-99) 96 mg/dL (70-99) Serum Osmolality 286 mOsm/Kg (279-304) Calcium Level 9.5 mg/dL (8.5-10.1) 9.0 mg/dL (8.5-10.1) Total Bilirubin 0.8 mg/dL (0.2-1.0) Direct Bilirubin 0.1 mg/dL (0.0-0.2) Aspartate Amino Transf (AST/SGOT) 10 U/L (15-37) Alanine Aminotransferase (ALT/SGPT) 16 U/L (14-59) Alkaline Phosphatase 118 U/L (46-116) Total Protein 8.8 g/dL (6.4-8.2) Albumin 4.4 g/dL (3.4-5.0) Lipase 98 U/L (73-393) Salicylates Level 5.2 mg/dL (2.8-20.0) Salicylate Last Dose Date Salicylate Last Dose Time Acetaminophen Level < 2 mcg/ml (10-30) Acetaminophen Last Dose Date Acetaminophen Last Dose Time Ethyl Alcohol Level < 10 mg/dL (0-10) Bedside Urine HCG, Qualitative Hcg negative (Negative) Urine Collection Type Unknown Urine Color Yellow Urine Clarity Clear Urine pH 6.5 Urine Specific Mcgrann <=1.005 Urine Protein Negative mg/dL (NEG-TRACE) Urine Glucose (UA) Negative mg/dL (NEG) Urine Ketones (Stick) Negative mg/dL (NEG) Urine Blood Small (NEG) Urine Nitrite Negative (NEG) Urine Bilirubin Negative (NEG) Urine Urobilinogen Dipstick 0.2 mg/dL (0.2 mg/dL) Urine Leukocyte Esterase Trace (NEG) Urine RBC Occ /HPF (0-2) Urine WBC Occ /HPF (0-4) Urine Squamous Epithelial Cells Few /LPF Urine Bacteria 0 /HPF (0-FEW) Urine Mucus Slight /LPF Urine Opiates Screen Neg (NEG) Urine Methadone Screen Neg (NEG) Urine Barbiturates Neg (NEG) Urine Phencyclidine Screen Neg (NEG) Urine Amphetamine/Methamphetamine Neg (NEG) Urine Benzodiazepines Screen Pos (NEG) Urine Cocaine Screen Pos (NEG) Urine Cannabinoids Screen Pos (NEG) Urine Ethyl Alcohol Neg (NEG) Laboratory Tests Test 01/26/17 22:45 01/26/17 23:22 01/27/17 00:13 01/27/17 04:10 White Blood Count 9.3 x10^3/uL (4.0-11.0) 7.2 x10^3/uL (4.0-11.0) Red Blood Count 4.67 x10^6/uL (3.50-5.40) 4.20 x10^6/uL (3.50-5.40) Hemoglobin 14.4 g/dL (12.0-15.5) 12.8 g/dL (12.0-15.5) Hematocrit 42.3 % (36.0-47.0) 38.0 % (36.0-47.0) Mean Corpuscular Volume 91 fL (79-100) 91 fL (79-100) Mean Corpuscular Hemoglobin 31 pg (25-35) 31 pg (25-35) Mean Corpuscular Hemoglobin Concent 34 g/dL (31-37) 34 g/dL (31-37) Red Cell Distribution Width 13.3 % (11.5-14.5) 13.2 % (11.5-14.5) Platelet Count 324 x10^3/uL (140-400) 269 x10^3/uL (140-400) Neutrophils (%) (Auto) 63 % (31-73) 54 % (31-73) Lymphocytes (%) (Auto) 25 % (24-48) 31 % (24-48) Monocytes (%) (Auto) 8 % (0-9) 9 % (0-9) Eosinophils (%) (Auto) 3 % (0-3) 5 % (0-3) Basophils (%) (Auto) 1 % (0-3) 1 % (0-3) Neutrophils # (Auto) 5.8 x10^3uL (1.8-7.7) 3.9 x10^3uL (1.8-7.7) Lymphocytes # (Auto) 2.4 x10^3/uL (1.0-4.8) 2.2 x10^3/uL (1.0-4.8) Monocytes # (Auto) 0.7 x10^3/uL (0.0-1.1) 0.7 x10^3/uL (0.0-1.1) Eosinophils # (Auto) 0.3 x10^3/uL (0.0-0.7) 0.3 x10^3/uL (0.0-0.7) Basophils # (Auto) 0.1 x10^3/uL (0.0-0.2) 0.1 x10^3/uL (0.0-0.2) Sodium Level 138 mmol/L (136-145) 143 mmol/L (136-145) Potassium Level 2.9 mmol/L (3.5-5.1) 3.5 mmol/L (3.5-5.1) Chloride Level 103 mmol/L (98-107) 106 mmol/L (98-107) Carbon Dioxide Level 27 mmol/L (21-32) 29 mmol/L (21-32) Anion Gap 8 (6-14) 8 (6-14) Blood Urea Nitrogen 9 mg/dL (7-20) 10 mg/dL (7-20) Creatinine 0.8 mg/dL (0.6-1.0) 0.8 mg/dL (0.6-1.0) Estimated GFR (Cockcroft-Gault) 84.2 84.2 Glucose Level 90 mg/dL (70-99) 96 mg/dL (70-99) Serum Osmolality 286 mOsm/Kg (279-304) Calcium Level 9.5 mg/dL (8.5-10.1) 9.0 mg/dL (8.5-10.1) Total Bilirubin 0.8 mg/dL (0.2-1.0) Direct Bilirubin 0.1 mg/dL (0.0-0.2) Aspartate Amino Transf (AST/SGOT) 10 U/L (15-37) Alanine Aminotransferase (ALT/SGPT) 16 U/L (14-59) Alkaline Phosphatase 118 U/L (46-116) Total Protein 8.8 g/dL (6.4-8.2) Albumin 4.4 g/dL (3.4-5.0) Lipase 98 U/L (73-393) Salicylates Level 5.2 mg/dL (2.8-20.0) Salicylate Last Dose Date Salicylate Last Dose Time Acetaminophen Level < 2 mcg/ml (10-30) Acetaminophen Last Dose Date Acetaminophen Last Dose Time Ethyl Alcohol Level < 10 mg/dL (0-10) Bedside Urine HCG, Qualitative Hcg negative (Negative) Urine Collection Type Unknown Urine Color Yellow Urine Clarity Clear Urine pH 6.5 Urine Specific Mcgrann <=1.005 Urine Protein Negative mg/dL (NEG-TRACE) Urine Glucose (UA) Negative mg/dL (NEG) Urine Ketones (Stick) Negative mg/dL (NEG) Urine Blood Small (NEG) Urine Nitrite Negative (NEG) Urine Bilirubin Negative (NEG) Urine Urobilinogen Dipstick 0.2 mg/dL (0.2 mg/dL) Urine Leukocyte Esterase Trace (NEG) Urine RBC Occ /HPF (0-2) Urine WBC Occ /HPF (0-4) Urine Squamous Epithelial Cells Few /LPF Urine Bacteria 0 /HPF (0-FEW) Urine Mucus Slight /LPF Urine Opiates Screen Neg (NEG) Urine Methadone Screen Neg (NEG) Urine Barbiturates Neg (NEG) Urine Phencyclidine Screen Neg (NEG) Urine Amphetamine/Methamphetamine Neg (NEG) Urine Benzodiazepines Screen Pos (NEG) Urine Cocaine Screen Pos (NEG) Urine Cannabinoids Screen Pos (NEG) Urine Ethyl Alcohol Neg (NEG) Medications Current Medications Potassium Chloride 100 ml @ 100 mls/hr Q1H IV ; Start 01/27/17 at 00:30; Stop 01/27/17 at 01:09; Status DC Potassium Chloride (Klor-Con) 40 meq 1X ONCE PO Last administered on 01:46; Start 01/27/17 at 01:30; Stop 01/27/17 at 01:31; Status DC Sodium Chloride 1,000 ml @ 75 mls/hr [id number] IV Last administered on 04:00; Start 01/27/17 at 04:00 Clonazepam (KlonoPIN) 1 mg DAILY PO ; Start 01/28/17 at 09:00 Ondansetron HCl (Zofran Odt) 4 mg BID PRN PO NAUSEA/VOMITING; Start 01/27/17 at 11:15 Trazodone HCl (Desyrel) 75 mg HS PO ; Start 01/27/17 at 21:00 Active Scripts Active Percocet 5-325 Mg Tablet (Oxycodone/Acetaminophen) 1 Each Tablet 1 Tab PO QID 7 Days Zyvox (Linezolid) 600 Mg Tablet 600 Mg PO BID 6 Days Reported Klonopin (Clonazepam) 1 Mg Tablet 1 Mg PO DAILY Trazodone Hcl 50 Mg Tablet 75 Mg PO HS Ibuprofen 800 Mg Tablet 800 Mg PO PRN Q8HRS PRN Zofran Odt (Ondansetron) 4 Mg Tab.rapdis 4 Mg PO BID PRN Latuda (Lurasidone Hcl) 40 Mg Tablet 40 Mg PO HS Klonopin (Clonazepam) 1 Mg Tablet 1 Mg PO PRN QID PRN Vitals/I & O Vital Sign - Last 24 Hours 01/26/17 01/26/17 01/26/17 01/26/17 21:57 22:14 22:16 22:47 Temp 98.1 98.1 Pulse 86 87 98 87 Resp 17 20 20 20 B/P (MAP) 109/84 (92) 109/84 (92) 128/101 (110) 117/86 (96) Pulse Ox 100 98 98 99 O2 Delivery Room Air Room Air Room Air Room Air 01/26/17 01/26/17 01/27/17 01/27/17 23:17 23:47 00:30 04:20 Temp 98.1 98.1 Pulse 85 66 79 75 Resp 20 20 16 16 B/P (MAP) 107/92 (97) 109/79 (89) 106/72 (83) 84/50 (61) Pulse Ox 99 99 98 100 O2 Delivery Room Air Room Air Room Air Room Air 01/27/17 01/27/17 07:00 08:02 Temp 97.9 97.9 Pulse 85 Resp 18 B/P (MAP) 100/49 (66) Pulse Ox 99 O2 Delivery Room Air Room Air MICKY GUEVARA III DO Jan 27, 2017 11:34
[2017-01-27] MEDS ORDERED: traZODone 50 MG TABLET. PO SCH (21:00)
--- NOTE | 2017-01-27 22:35 | DS ---
DATE OF DISCHARGE: 01/27/2017 ADMISSION DIAGNOSIS: Suicidal ideation. DISCHARGE DIAGNOSIS: Resolving suicidal ideation. HOSPITAL COURSE: The patient is a pleasant 31-year-old female who presented with suicidal ideation. I think she did take some her Klonopin about 25 tablets. Basically she did not really have ____ symptoms other than sleepiness. This morning she is stable. She has had the PAT team see her. Psychiatric Assessment Team states that she is fine. I discussed with Ar, the social work case manager. We plan to discharge. He knows the patient well. DISPOSITION: Home. ACTIVITY: As tolerated. DIET: Low sodium. MEDICATIONS: Please see the MRAD. TOTAL TIME: 32 minutes. MICKY GUEVARA DO DR: MINDI/zach JOB#: [id number] / [id number]
[2017-01-28] MEDS ORDERED: clonazePAM 1 MG TABLET PO SCH (09:00)
== END 2017-01-27 11:33 | disposition home or self-care (01) ==
LOC: ER 21:42 → EEVIPCON 21:42 → 5 SOUTH 23:24
PROVIDERS: ADMIT Internal Medicine; ATTEND Internal Medicine
DX: R45.851 Suicidal ideations (principal); E87.6 Hypokalemia; Z90.13 Acquired absence of bilateral breasts and nipples
CPT/HCPCS: 36415; 80048; 80076; 80329; 81001; 81025; 83690; 83930; 85027; 87086; 93005; 96360; 96361; 99285; G0378; G0480; G0481; J7030; G0379

== ENCOUNTER 2018-10-11 23:41 | Inpatient (IN) | payer OTHER ==
[~2018-10-11] VITALS: Ht 160 cm; Wt 78.9 kg
[2018-10-11 22:50] VITALS: BP 125/83
[~2018-10-11 23:41] MED LIST changes: -OXYC-323 PO; +OXYC1TAB15 PO; +TRAZ-118 PO; -TRAZ50TA15 PO
[2018-10-12] MEDS ORDERED: ONDANSETRON PF 4 MG/2 ML VIAL. IV PRN (00:15)
[2018-10-12] MEDS: HYDROmorphone 2 MG/ML VIAL IV PRN ×4 (01:00→20:04)
[2018-10-12] MEDS: IV NORMAL SALINE 1000ML BAG 1,000 ML IV SCH ×2 (01:00→09:04)
[2018-10-12] MEDS: clonazePAM 1 MG TABLET PO PRN (01:01)
[2018-10-12 03:24] VITALS: BP 95/58
[2018-10-12 04:47] LABS: BASO # 0.1 x10^3/uL (0.0-0.2); BASO % 1 % (0-3); EOS # 0.4 x10^3/uL (0.0-0.7); EOS % 7 % (0-3); HEMATOCRIT 38.8 % (36.0-47.0); LYMPH % 49 % (24-48); MEAN CORPUSCULAR HEMOGLOBIN 30 pg (25-35); MEAN CORPUSCULAR HGB CONC 34 g/dL (31-37); MEAN CORPUSCULAR VOLUME 90 fL (79-100); MONO # 0.4 x10^3/uL (0.0-1.1); MONO % 6 % (0-9); NEUT # 2.2 x10^3uL (1.8-7.7); NEUT % 36 % (31-73); PLATELET COUNT 369 x10^3/uL (140-400); RED CELL DISTRIBUTION WIDTH 13.1 % (11.5-14.5); WHITE BLOOD COUNT 6.1 x10^3/uL (4.0-11.0)
[2018-10-12 05:18] LABS: ALBUMIN/GLOBULIN RATIO 0.9 (1.0-1.7); CREATININE 0.9 mg/dL (0.6-1.0); GFR 72.6; POTASSIUM 3.5 mmol/L (3.5-5.1); TOTAL BILIRUBIN 0.5 mg/dL (0.2-1.0); TOTAL PROTEIN 8.3 g/dL (6.4-8.2)
[2018-10-12 07:00] VITALS: BP 96/62
--- NOTE | 2018-10-12 07:52 | PDOC2 ---
CONSULT Date of Consult Date of Consult DATE: 10/12/18 TIME: 07:45 History of Present Illness Reason for Visit: The patient is a 33 year old female who reported to [facility] ER with abdominal pain. She states that around 2 days ago she first noticed a headache. She tried to go to work, then noticed pain across mid and lower abdomen. She denies nausea, vomiting, or changes in bowel function. While in the ER at a CT scan was performed. The report noted a 7 mm appendix with no inflammatory changes. But appendicitis could not be "ruled out", so the patient was transferred to [facility] for additional evaluation. Her WBC count was normal. Past Medical History Past Medical History MUYTH genetic mutation Cardiovascular: HTN Heme/Onc: Cancer Psych: Anxiety, Bipolar, Depression Past Surgical History Past Surgical History hysterectomy, breast cancer surgery with nithin flap reconstruction Past Surgical History: Other Family History Family History: Other Social History ALCOHOL: none Drugs: Cocaine, Marijuana Lives: Alone Current Medications Current Medications Current Medications Sodium Chloride 1,000 ml @ 120 mls/hr Q8H20M IV Last administered on 10/12/18at 01:00; Start 10/12/18 at 00:30 Hydromorphone HCl (Dilaudid) 1 mg PRN Q4HRS PRN IV SEVERE PAIN Last administered on 10/12/18at 05:53; Start 10/12/18 at 00:15 Ondansetron HCl (Zofran) 4 mg PRN Q4HRS PRN IV NAUSEA/VOMITING 1ST CHOICE; Start 10/12/18 at 00:15 Clonazepam (KlonoPIN) 1 mg PRN TID PRN PO ANXIETY / AGITATION Last administered on 10/12/18at 01:01; Start 10/12/18 at 00:15 Active Scripts Active Percocet 5-325 Mg Tablet (Oxycodone/Acetaminophen) 1 Each Tablet 1 Tab PO QID 7 Days Zyvox (Linezolid) 600 Mg Tablet 600 Mg PO BID 6 Days Reported Klonopin (Clonazepam) 1 Mg Tablet 1 Mg PO DAILY Trazodone Hcl 50 Mg Tablet 75 Mg PO HS Ibuprofen 800 Mg Tablet 800 Mg PO PRN Q8HRS PRN Zofran Odt (Ondansetron) 4 Mg Tab.rapdis 4 Mg PO BID PRN Latuda (Lurasidone Hcl) 40 Mg Tablet 40 Mg PO HS Klonopin (Clonazepam) 1 Mg Tablet 1 Mg PO PRN QID PRN Allergies Allergies: Coded Allergies: I S O L A T I O N *CONTACT* (Verified Allergy, Unknown, 10/17/16) mrsa vancomycin (Verified Adverse Reaction, Intermediate, Rash, 10/10/16) "Red man" rxn ROS General: No: Chills, Night Sweats, Fatigue, Malaise, Appetite, Other PSYCHOLOGICAL ROS: No: Anxiety, Behavioral Disorder, Concentration difficultie , Decreased libido, Depression, Disorientation, Hallucinations, Hostility, Irritablity, Memory difficulties, Mood Swings, Obsessive thoughts, Physical abuse, Sexual abuse, Sleep disturbances, Suicidal ideation, Other Eyes: No Blurry vision, No Decreased vision, No Double vision, No Dry eyes, No Excessive tearing, No Eye Pain, No Itchy Eyes, No Loss of vision, No Photophobia , No Scotomata, No Uses contacts, No Uses glasses, No Other HEENT: No: Heacaches, Visual Changes, Hearing change, Nasal congestion, Nasal discharge, Oral lesions, Sinus pain, Sore Throat, Epistaxis, Sneezing, Snoring, Tinnitus, Vertigo, Vocal changes, Other ALLERGY AND IMMUNOLOGY: No: Hives, Insect Bite Sensitivity, Itchy/Watery Eyes, Nasal Congestion, Post Nasal Drip, Seasonal Allergies, Other Hematological and Lymphatic: No: Bleeding Problems, Blood Clots, Blood Transfusions, Brusing, Night Sweats, Pallor, Swollen Lymph Nodes, Other Breast: No New/Changing Breast Lumps, No Nipple changes, No Nipple discharge, No Other Respiratory: No: Cough, Hemoptysis, Orthopnea, Pleuritic Pain, Shortness of breath, SOB with excertion, Sputum Changes, Stridor, Tachypnea, Wheezing, Other Gastrointestinal: Yes Abdominal Pain Genitourinary: No Dysuria, No Frequency, No Incontinence, No Hematuria, No Retention, No Discharge, No Urgency, No Pain, No Flank Pain, No Other, No , No , No , No , No , No , No Musculoskeletal: No Gait Disturbance, No Joint Pain, No Joint Stiffness, No Joint Swelling, No Muscle Pain, No Muscular Weakness, No Pain In:, No Swelling In:, No Other Neurological: Yes Headaches Skin: No Dry Skin, No Eczema, No Hair Changes, No Lumps, No Mole Changes, No Mottling, No Nail Changes, No Pruritus, No Rash, No Skin Lesion Changes, No Other, No Acne Physical Exam General: Alert (somewhat lethargic) HEENT: Atraumatic, PERRLA Lungs: Clear to auscultation Heart: Regular rate Abdomen: Soft (reports tenderness to palpation RLQ and LLQ, no guarding, no peritoneal signs) Extremities: No clubbing, No cyanosis Skin: No rashes Psych/Mental Status: Other (mildly lethargic) MUSCULOSKELETAL: No joint tenderness, No deformity Vitals VITALS Vital Signs Date Time Temp Pulse Resp B/P (MAP) Pulse Ox O2 Delivery O2 Flow Rate FiO2 10/12/18 07:29 Room Air 10/12/18 03:24 97.6 73 18 95/58 (70) 97 97.6 Labs Labs Laboratory Tests Test 10/12/18 04:00 White Blood Count 6.1 x10^3/uL (4.0-11.0) Red Blood Count 4.30 x10^6/uL (3.50-5.40) Hemoglobin 13.0 g/dL (12.0-15.5) Hematocrit 38.8 % (36.0-47.0) Mean Corpuscular Volume 90 fL (79-100) Mean Corpuscular Hemoglobin 30 pg (25-35) Mean Corpuscular Hemoglobin Concent 34 g/dL (31-37) Red Cell Distribution Width 13.1 % (11.5-14.5) Platelet Count 369 x10^3/uL (140-400) Neutrophils (%) (Auto) 36 % (31-73) Lymphocytes (%) (Auto) 49 % (24-48) Monocytes (%) (Auto) 6 % (0-9) Eosinophils (%) (Auto) 7 % (0-3) Basophils (%) (Auto) 1 % (0-3) Neutrophils # (Auto) 2.2 x10^3uL (1.8-7.7) Lymphocytes # (Auto) 3.0 x10^3/uL (1.0-4.8) Monocytes # (Auto) 0.4 x10^3/uL (0.0-1.1) Eosinophils # (Auto) 0.4 x10^3/uL (0.0-0.7) Basophils # (Auto) 0.1 x10^3/uL (0.0-0.2) Sodium Level 145 mmol/L (136-145) Potassium Level 3.5 mmol/L (3.5-5.1) Chloride Level 106 mmol/L (98-107) Carbon Dioxide Level 26 mmol/L (21-32) Anion Gap 13 (6-14) Blood Urea Nitrogen 11 mg/dL (7-20) Creatinine 0.9 mg/dL (0.6-1.0) Estimated GFR (Cockcroft-Gault) 72.6 BUN/Creatinine Ratio 12 (6-20) Glucose Level 86 mg/dL (70-99) Calcium Level 9.0 mg/dL (8.5-10.1) Total Bilirubin 0.5 mg/dL (0.2-1.0) Aspartate Amino Transf (AST/SGOT) 22 U/L (15-37) Alanine Aminotransferase (ALT/SGPT) 39 U/L (14-59) Alkaline Phosphatase 121 U/L (46-116) Total Protein 8.3 g/dL (6.4-8.2) Albumin 4.0 g/dL (3.4-5.0) Albumin/Globulin Ratio 0.9 (1.0-1.7) Laboratory Tests Test 10/12/18 04:00 White Blood Count 6.1 x10^3/uL (4.0-11.0) Red Blood Count 4.30 x10^6/uL (3.50-5.40) Hemoglobin 13.0 g/dL (12.0-15.5) Hematocrit 38.8 % (36.0-47.0) Mean Corpuscular Volume 90 fL (79-100) Mean Corpuscular Hemoglobin 30 pg (25-35) Mean Corpuscular Hemoglobin Concent 34 g/dL (31-37) Red Cell Distribution Width 13.1 % (11.5-14.5) Platelet Count 369 x10^3/uL (140-400) Neutrophils (%) (Auto) 36 % (31-73) Lymphocytes (%) (Auto) 49 % (24-48) Monocytes (%) (Auto) 6 % (0-9) Eosinophils (%) (Auto) 7 % (0-3) Basophils (%) (Auto) 1 % (0-3) Neutrophils # (Auto) 2.2 x10^3uL (1.8-7.7) Lymphocytes # (Auto) 3.0 x10^3/uL (1.0-4.8) Monocytes # (Auto) 0.4 x10^3/uL (0.0-1.1) Eosinophils # (Auto) 0.4 x10^3/uL (0.0-0.7) Basophils # (Auto) 0.1 x10^3/uL (0.0-0.2) Sodium Level 145 mmol/L (136-145) Potassium Level 3.5 mmol/L (3.5-5.1) Chloride Level 106 mmol/L (98-107) Carbon Dioxide Level 26 mmol/L (21-32) Anion Gap 13 (6-14) Blood Urea Nitrogen 11 mg/dL (7-20) Creatinine 0.9 mg/dL (0.6-1.0) Estimated GFR (Cockcroft-Gault) 72.6 BUN/Creatinine Ratio 12 (6-20) Glucose Level 86 mg/dL (70-99) Calcium Level 9.0 mg/dL (8.5-10.1) Total Bilirubin 0.5 mg/dL (0.2-1.0) Aspartate Amino Transf (AST/SGOT) 22 U/L (15-37) Alanine Aminotransferase (ALT/SGPT) 39 U/L (14-59) Alkaline Phosphatase 121 U/L (46-116) Total Protein 8.3 g/dL (6.4-8.2) Albumin 4.0 g/dL (3.4-5.0) Albumin/Globulin Ratio 0.9 (1.0-1.7) Assessment/Plan Assessment/Plan 33 year old female with abdominal pain, CT equivocal, without inflammatory changes, borderline in size; WBC normal, exam not suggestive of appendicitis ( lacking guarding or peritoneal signs); at this point I would not recommend surgery, but rather observation with serial exams, repeat labs, ok to start clears. I discussed this with the patient. She requests a "second opinion" at and wants to have her appendix removed. Defer to primary for transfer arrangements as desired. ANIRUDH JORGE MD Oct 12, 2018 07:52
--- NOTE | 2018-10-12 07:53 | PDOC1 ---
History and Physical Date of Admission Date of Admission DATE: 10/11/18 TIME: 22:50 Identification/Chief Complaint Chief Complaint Abdominal Pain Source Source: Chart review, Patient History of Present Illness History of Present Illness 33-year-old female with history of bipolar disease, also has a history of breast cancer in 2014, underwent bilateral mastectomies and reconstructions with multiple procedures. She did not receive any chemotherapy or radiation. Friday, she noted abdominal pain and headaches. She was not having fevers, chills, sweats, nausea, vomiting or diarrhea. Went to [place] where she was found with a CT scan that was performed showing a 7 mm appendix with no inflammatory changes. But appendicitis could not be "ruled out" on radiology report, so the patient was transferred to [facility] for additional evaluation. Her WBC count was normal. She notes her abdominal pain had made her unable to attend work the past 3 days as she has also been having some fecal incontinence. Denies precipitating events and sick contacts. Tox screen +cocaine + cannabinoids. Surgery has seen - exam not c/w appendicitis, recs to monitor and try clears. She would now like to advance her diet beyond clears. She also apparently had an EGD @ [facility] last month showing a gastric ulcer ? w/ recs to take PPI for 6 months. Had colonoscopy in 2017, and apparently also last month. Past Medical History Cardiovascular: HTN Heme/Onc: Cancer Psych: Anxiety, Bipolar, Depression Past Surgical History Past Surgical History: Other Family History Family History: Other Social History ALCOHOL: none Drugs: None Current Medications Current Medications Current Medications Sodium Chloride 1,000 ml @ 120 mls/hr Q8H20M IV Last administered on 10/12/18at 01:00; Start 10/12/18 at 00:30 Hydromorphone HCl (Dilaudid) 1 mg PRN Q4HRS PRN IV SEVERE PAIN Last administered on 10/12/18at 05:53; Start 10/12/18 at 00:15 Ondansetron HCl (Zofran) 4 mg PRN Q4HRS PRN IV NAUSEA/VOMITING 1ST CHOICE; Start 10/12/18 at 00:15 Clonazepam (KlonoPIN) 1 mg PRN TID PRN PO ANXIETY / AGITATION Last administered on 10/12/18at 01:01; Start 10/12/18 at 00:15 Active Scripts Active Percocet 5-325 Mg Tablet (Oxycodone/Acetaminophen) 1 Each Tablet 1 Tab PO QID 7 Days Zyvox (Linezolid) 600 Mg Tablet 600 Mg PO BID 6 Days Reported Klonopin (Clonazepam) 1 Mg Tablet 1 Mg PO DAILY Trazodone Hcl 50 Mg Tablet 75 Mg PO HS Ibuprofen 800 Mg Tablet 800 Mg PO PRN Q8HRS PRN Zofran Odt (Ondansetron) 4 Mg Tab.rapdis 4 Mg PO BID PRN Latuda (Lurasidone Hcl) 40 Mg Tablet 40 Mg PO HS Klonopin (Clonazepam) 1 Mg Tablet 1 Mg PO PRN QID PRN Allergies Allergies: Coded Allergies: vancomycin (Verified Adverse Reaction, Intermediate, Rash, 10/10/16) "Red man" rxn Physical Exam General: Alert, Oriented X3, Cooperative, No acute distress HEENT: Atraumatic, PERRLA, EOMI, Mucous membr. moist/pink Lungs: Clear to auscultation, Normal air movement Heart: S1S2, RRR, no gallops, no murmurs Abdomen: Normal bowel sounds, Soft, No hepatosplenomegaly, No masses, Other ( Bilateral lower quadrant tenderness) Rectal Exam: not examined Extremities: No clubbing, No cyanosis, No edema, Normal pulses, No tenderness/ swelling Skin: No rashes, No breakdown, No significant lesion Neuro: Normal gait, Normal speech, Strength at 5/5 X4 ext, Normal tone, Sensation intact, Cranial nerves 3-12 NL, Reflexes 2+ Psych/Mental Status: Mental status NL, Mood NL Vitals Vitals Vital Signs Date Time Temp Pulse Resp B/P (MAP) Pulse Ox O2 Delivery O2 Flow Rate FiO2 10/12/18 07:29 Room Air 10/12/18 07:00 97.6 71 18 96/62 (73) 94 97.6 Labs Labs Laboratory Tests Test 10/12/18 04:00 White Blood Count 6.1 x10^3/uL (4.0-11.0) Red Blood Count 4.30 x10^6/uL (3.50-5.40) Hemoglobin 13.0 g/dL (12.0-15.5) Hematocrit 38.8 % (36.0-47.0) Mean Corpuscular Volume 90 fL (79-100) Mean Corpuscular Hemoglobin 30 pg (25-35) Mean Corpuscular Hemoglobin Concent 34 g/dL (31-37) Red Cell Distribution Width 13.1 % (11.5-14.5) Platelet Count 369 x10^3/uL (140-400) Neutrophils (%) (Auto) 36 % (31-73) Lymphocytes (%) (Auto) 49 % (24-48) Monocytes (%) (Auto) 6 % (0-9) Eosinophils (%) (Auto) 7 % (0-3) Basophils (%) (Auto) 1 % (0-3) Neutrophils # (Auto) 2.2 x10^3uL (1.8-7.7) Lymphocytes # (Auto) 3.0 x10^3/uL (1.0-4.8) Monocytes # (Auto) 0.4 x10^3/uL (0.0-1.1) Eosinophils # (Auto) 0.4 x10^3/uL (0.0-0.7) Basophils # (Auto) 0.1 x10^3/uL (0.0-0.2) Sodium Level 145 mmol/L (136-145) Potassium Level 3.5 mmol/L (3.5-5.1) Chloride Level 106 mmol/L (98-107) Carbon Dioxide Level 26 mmol/L (21-32) Anion Gap 13 (6-14) Blood Urea Nitrogen 11 mg/dL (7-20) Creatinine 0.9 mg/dL (0.6-1.0) Estimated GFR (Cockcroft-Gault) 72.6 BUN/Creatinine Ratio 12 (6-20) Glucose Level 86 mg/dL (70-99) Calcium Level 9.0 mg/dL (8.5-10.1) Total Bilirubin 0.5 mg/dL (0.2-1.0) Aspartate Amino Transf (AST/SGOT) 22 U/L (15-37) Alanine Aminotransferase (ALT/SGPT) 39 U/L (14-59) Alkaline Phosphatase 121 U/L (46-116) Total Protein 8.3 g/dL (6.4-8.2) Albumin 4.0 g/dL (3.4-5.0) Albumin/Globulin Ratio 0.9 (1.0-1.7) Laboratory Tests Test 10/12/18 04:00 White Blood Count 6.1 x10^3/uL (4.0-11.0) Red Blood Count 4.30 x10^6/uL (3.50-5.40) Hemoglobin 13.0 g/dL (12.0-15.5) Hematocrit 38.8 % (36.0-47.0) Mean Corpuscular Volume 90 fL (79-100) Mean Corpuscular Hemoglobin 30 pg (25-35) Mean Corpuscular Hemoglobin Concent 34 g/dL (31-37) Red Cell Distribution Width 13.1 % (11.5-14.5) Platelet Count 369 x10^3/uL (140-400) Neutrophils (%) (Auto) 36 % (31-73) Lymphocytes (%) (Auto) 49 % (24-48) Monocytes (%) (Auto) 6 % (0-9) Eosinophils (%) (Auto) 7 % (0-3) Basophils (%) (Auto) 1 % (0-3) Neutrophils # (Auto) 2.2 x10^3uL (1.8-7.7) Lymphocytes # (Auto) 3.0 x10^3/uL (1.0-4.8) Monocytes # (Auto) 0.4 x10^3/uL (0.0-1.1) Eosinophils # (Auto) 0.4 x10^3/uL (0.0-0.7) Basophils # (Auto) 0.1 x10^3/uL (0.0-0.2) Sodium Level 145 mmol/L (136-145) Potassium Level 3.5 mmol/L (3.5-5.1) Chloride Level 106 mmol/L (98-107) Carbon Dioxide Level 26 mmol/L (21-32) Anion Gap 13 (6-14) Blood Urea Nitrogen 11 mg/dL (7-20) Creatinine 0.9 mg/dL (0.6-1.0) Estimated GFR (Cockcroft-Gault) 72.6 BUN/Creatinine Ratio 12 (6-20) Glucose Level 86 mg/dL (70-99) Calcium Level 9.0 mg/dL (8.5-10.1) Total Bilirubin 0.5 mg/dL (0.2-1.0) Aspartate Amino Transf (AST/SGOT) 22 U/L (15-37) Alanine Aminotransferase (ALT/SGPT) 39 U/L (14-59) Alkaline Phosphatase 121 U/L (46-116) Total Protein 8.3 g/dL (6.4-8.2) Albumin 4.0 g/dL (3.4-5.0) Albumin/Globulin Ratio 0.9 (1.0-1.7) Images Images CT abdomen - no appendiceal inflammation notable VTE Prophylaxis Ordered VTE Prophylaxis Devices: Yes VTE Pharmacological Prophylaxi: No Assessment/Plan Assessment/Plan A/P: Abdominal pain - unlikely to be appendicitis, will ADAT. F/u surgery recs. Consult GI Loose stools - no BM last 24 hours Borderline dilated appendix w/o inflammation on CT - she wishes to have her appendix out, I have advised currently against this. ?h/o PUD - EGD last month @ [facility], on PPI - will continue Substance abuse - cocaine returned positive after my initial examination. Possibly had some vasoconstriction related to this causing pain H/o breast cancer - s/p surgery Bipolar - cont meds. There is apparent splitting on examination as she is verbally trying to ask physicians to disagree with one another. I have advised her a second opinion from GI is ok, however her initial request to transfer to [facility] would not be necessary. Can f/u there outpatient FEN - NPO --> Clear liquid diet PPX - SCDs FULL CODE Inpatient for her abdominal pain, nausea, diarrhea. Appreciate GI and surgery input LAITH HEWITT MD Oct 12, 2018 07:53
[2018-10-12] MEDS ORDERED: ONDANSETRON ODT 4 MG TAB.RAPDIS. PO PRN (08:00)
[2018-10-12] MEDS: oxyCODONE/APAP 5/325 1 TAB TABLET PO SCH ×4 (09:04→22:11)
[2018-10-12 09:55] LABS: BILIRUBIN,URINE NEGATIVE (NEG); CLARITY,URINE CLEAR; COLOR,URINE YELLOW; NITRITE,URINE NEGATIVE (NEG); PH,URINE 5.5; PROTEIN,URINE NEGATIVE (NEG-TRACE); UROBILINOGEN,URINE 0.2 mg/dL (0.2 mg/dL)
[2018-10-12 10:03] LABS: BACTERIA,URINE MANY /HPF (0-FEW); SQUAMOUS EPITHELIAL CELL,UR MANY /LPF
[2018-10-12 10:04] LABS: AMPHETAMINE/METHAMPHETAMINE NEG (NEG); BARBITURATES NEG (NEG); BENZODIAZEPINES POS (NEG); CANNABINOIDS POS (NEG); METHADONE NEG (NEG); OPIATES POS (NEG); PHENCYCLIDINE NEG (NEG)
[2018-10-12 10:04] LABS: RBC,URINE OCC /HPF (0-2)
[2018-10-12 10:07] LABS: COCAINE POS (NEG)
[2018-10-12 11:00] VITALS: BP 99/62
--- NOTE | 2018-10-12 11:25 | NUR ---
JENNIFER following for discharge planning. Discussed with RN, RN advised no plans for surgery. Per RN, pt has history of suicidal ideation and mental health and some current drug use. Dr. Bolanos agreed for PAT consult. SW will continue to follow for discharge planning. RN notified.
--- NOTE | 2018-10-12 13:00 | NUR ---
Percocet held at this time, Dilaudid administered approx one hour ago, Pt drowsy at this time.
--- NOTE | 2018-10-12 13:03 | PDOC2 ---
GI CONSULT Reason For Consult: Gastritis, abd pain, r/o appy HPI: HPI: 33 y/o female transferred from [facility]. I saw her this afternoon w/ Dr. Rojas. She reports feeling ill x 3 days w/ abdominal pain and loose stools "with accidents." Hasn't had stools since yesterday morning but abdominal pain persists. Denies precipitating events and sick contacts. WBC normal. Tox screen +cocaine +cannabinoids. CT noted borderline dilated appendix w/o inflammation. Surgery has seen - exam not c/w appendicitis, recs to monitor and try clears. She would now like to advance her diet beyond clears. Colonoscopy in 09/[address] Rojas for CIBH and +BRCA gene was normal other than non-bleeding internal hemorrhoids. She also apparently had an EGD and colonoscopy last month @ [facility] which showed "some lesions and an ulcer in my stomach" - history difficult, seems was given omeprazole w/ recs to take x 6 months. First says biopsies were negative, then w/ further questioning says some concern for H. pylori w/ her increased risk of gastric cancer. Also says prior to recent colonoscopy, was told by a surgeon who ?repaired vaginal prolapse that her colon was "full of cysts." PMH: PMH: breast cancer +genetic testing, HTN, ?PUD, anxiety, bipolar, depression, substance abuse, endometriosis bilateral mastectomies/reconstruction, hysterectomy, I&D left thigh, ?vaginal prolapse repair FH: Family History: DM, Hypertension Social History: Smoke: <1 pack per day Drugs: Cocaine, Marijuana ROS: GEN: Denies fevers, chills, sweats HEENT: Denies blurred vision, sore throat CV: Denies chest pain RESP: Denies shortness of air, cough GI: Per HPI : Denies hematuria, dysuria ENDO: Denies weight changes NEURO: Denies confusion, dizziness MSK: Denies weakness, joint pain/swelling SKIN: Denies jaundice, pruritus Vitals: Vitals: Vital Signs Date Time Temp Pulse Resp B/P (MAP) Pulse Ox O2 Delivery O2 Flow Rate FiO2 10/12/18 12:58 Room Air 10/12/18 11:00 97.7 78 18 99/62 (74) 99 97.7 Labs: Labs: Laboratory Tests Test 10/12/18 04:00 10/12/18 09:39 10/12/18 09:45 10/12/18 10:05 White Blood Count 6.1 x10^3/uL (4.0-11.0) Red Blood Count 4.30 x10^6/uL (3.50-5.40) Hemoglobin 13.0 g/dL (12.0-15.5) Hematocrit 38.8 % (36.0-47.0) Mean Corpuscular Volume 90 fL (79-100) Mean Corpuscular Hemoglobin 30 pg (25-35) Mean Corpuscular Hemoglobin Concent 34 g/dL (31-37) Red Cell Distribution Width 13.1 % (11.5-14.5) Platelet Count 369 x10^3/uL (140-400) Neutrophils (%) (Auto) 36 % (31-73) Lymphocytes (%) (Auto) 49 % (24-48) Monocytes (%) (Auto) 6 % (0-9) Eosinophils (%) (Auto) 7 % (0-3) Basophils (%) (Auto) 1 % (0-3) Neutrophils # (Auto) 2.2 x10^3uL (1.8-7.7) Lymphocytes # (Auto) 3.0 x10^3/uL (1.0-4.8) Monocytes # (Auto) 0.4 x10^3/uL (0.0-1.1) Eosinophils # (Auto) 0.4 x10^3/uL (0.0-0.7) Basophils # (Auto) 0.1 x10^3/uL (0.0-0.2) Sodium Level 145 mmol/L (136-145) Potassium Level 3.5 mmol/L (3.5-5.1) Chloride Level 106 mmol/L (98-107) Carbon Dioxide Level 26 mmol/L (21-32) Anion Gap 13 (6-14) Blood Urea Nitrogen 11 mg/dL (7-20) Creatinine 0.9 mg/dL (0.6-1.0) Estimated GFR (Cockcroft-Gault) 72.6 BUN/Creatinine Ratio 12 (6-20) Glucose Level 86 mg/dL (70-99) Calcium Level 9.0 mg/dL (8.5-10.1) Total Bilirubin 0.5 mg/dL (0.2-1.0) Aspartate Amino Transf (AST/SGOT) 22 U/L (15-37) Alanine Aminotransferase (ALT/SGPT) 39 U/L (14-59) Alkaline Phosphatase 121 U/L (46-116) Total Protein 8.3 g/dL (6.4-8.2) Albumin 4.0 g/dL (3.4-5.0) Albumin/Globulin Ratio 0.9 (1.0-1.7) Urine Opiates Screen Pos (NEG) Urine Methadone Screen Neg (NEG) Urine Barbiturates Neg (NEG) Urine Phencyclidine Screen Neg (NEG) Urine Amphetamine/Methamphetamine Neg (NEG) Urine Benzodiazepines Screen Pos (NEG) Urine Cocaine Screen Pos (NEG) Urine Cannabinoids Screen Pos (NEG) Urine Ethyl Alcohol Neg (NEG) Urine Collection Type Unknown Urine Color Yellow Urine Clarity Clear Urine pH 5.5 Urine Specific [place] 1.025 Urine Protein Negative mg/dL (NEG-TRACE) Urine Glucose (UA) Negative mg/dL (NEG) Urine Ketones (Stick) Negative mg/dL (NEG) Urine Blood Negative (NEG) Urine Nitrite Negative (NEG) Urine Bilirubin Negative (NEG) Urine Urobilinogen Dipstick 0.2 mg/dL (0.2 mg/dL) Urine Leukocyte Esterase Negative (NEG) Urine RBC Occ /HPF (0-2) Urine WBC 5-10 /HPF (0-4) Urine Squamous Epithelial Cells Many /LPF Urine Bacteria Many /HPF (0-FEW) Urine Mucus Marked /LPF Erythrocyte Sedimentation Rate 13 (0-25) Allergies: Coded Allergies: vancomycin (Verified Adverse Reaction, Intermediate, Rash, 10/10/16) "Red man" rxn Medications: Current Medications Medications (Trade) Dose Ordered Sig/Fredy Route PRN Reason Start Time Stop Time Status Last Admin Dose Admin Sodium Chloride 1,000 ml @ 120 mls/hr Q8H20M IV 10/12/18 00:30 10/12/18 10:28 DC 10/12/18 09:04 Hydromorphone HCl (Dilaudid) 1 mg PRN Q4HRS PRN IV SEVERE PAIN 10/12/18 00:15 10/12/18 12:12 Clonazepam (KlonoPIN) 1 mg PRN TID PRN PO ANXIETY / AGITATION 10/12/18 00:15 10/12/18 01:01 Oxycodone/ Acetaminophen (Percocet 5/325) 1 tab QID PO 10/12/18 09:00 10/12/18 09:04 Imaging: Imaging: Per HPI. PE: GEN: walks slowly and somewhat hunched over from restroom, prefers to sit in chair instead of laying in bed HEENT: Atraumatic, PERRL LUNGS: CTAB HEART: RRR ABD: right-sided tenderness EXTREMITY: No edema SKIN: No rashes, no jaundice NEURO/PSYCH: A & O 3 A/P: A/P: Abd pain (ongoing), loose stools (better) Borderline dilated appendix w/o inflammation on CT ?h/o PUD - EGD last month @ [facility], on PPI CRC screen - more than one previous colonoscopy, last a month ago reportedly normal Substance abuse H/o breast cancer -- Pt was seen/examined by Dr. Rojas. Check stool studies, ADAT. She also requests Miralax - will add PRN. Will also request records from [facility] re: recent 'scopes/biopsies. SONIA RAMIREZ Oct 12, 2018 13:03
[2018-10-12] MEDS: POLYETHYLENE GLYCOL 3350 17 GM PACKET. PO PRN (14:46)
[2018-10-12 15:00] VITALS: BP 106/81
[2018-10-12] MEDS: PANTOPRAZOLE 40 MG TABLET.DR. PO SCH (16:45)
[2018-10-12 19:25] VITALS: BP 104/69
[2018-10-12] MEDS ORDERED: LURASIDONE 40 MG TABLET. PO SCH (21:00)
[2018-10-12] MEDS ORDERED: traZODone 50 MG TABLET. PO SCH (21:00)
--- NOTE | 2018-10-12 22:00 | NUR ---
Patient has scheduled Latuda QHS. Pt states that she has not taken Latuda 'in a long time.' Patient refused to take at this time. RN Non-administered at this time. Will continue to monitor.
[2018-10-12 23:26] VITALS: BP 103/65
[2018-10-13] MEDS: HYDROmorphone 2 MG/ML VIAL IV PRN ×2 (03:17→07:40)
[2018-10-13 03:21] VITALS: BP 97/68
[2018-10-13 04:42] LABS: BASO % 1 % (0-3); EOS # 0.4 x10^3/uL (0.0-0.7); EOS % 9 % (0-3); HEMATOCRIT 33.2 % (36.0-47.0); HEMOGLOBIN 11.3 g/dL (12.0-15.5); LYMPH # 2.1 x10^3/uL (1.0-4.8); LYMPH % 47 % (24-48); MEAN CORPUSCULAR HEMOGLOBIN 31 pg (25-35); MEAN CORPUSCULAR HGB CONC 34 g/dL (31-37); MEAN CORPUSCULAR VOLUME 90 fL (79-100); MONO # 0.4 x10^3/uL (0.0-1.1); MONO % 9 % (0-9); NEUT # 1.5 x10^3uL (1.8-7.7); NEUT % 34 % (31-73); PLATELET COUNT 272 x10^3/uL (140-400); RED CELL DISTRIBUTION WIDTH 13.2 % (11.5-14.5); WHITE BLOOD COUNT 4.4 x10^3/uL (4.0-11.0)
[2018-10-13 07:00] VITALS: BP 99/72
[2018-10-13] MEDS: PANTOPRAZOLE 40 MG TABLET.DR. PO SCH (07:34)
[2018-10-13] MEDS: oxyCODONE/APAP 5/325 1 TAB TABLET PO SCH ×2 (09:00→12:24)
--- NOTE | 2018-10-13 09:00 | NUR ---
Scheduled Percocet held at this time. Pt requested Dilaudid at approx 0730 and wants Percocet to be held for a later time.
--- NOTE | 2018-10-13 09:25 | PDOC ---
YONG ALVARADO LOIN TRIMMER 10/13/18 0925: SURGICAL PROGRESS NOTE Subjective eating on the phone reports sharp intermittent shock like pains to right lower abdomen Vital Signs Vital Signs Date Time Temp Pulse Resp B/P (MAP) Pulse Ox O2 Delivery O2 Flow Rate FiO2 10/13/18 07:40 Room Air 10/13/18 07:00 98.5 79 16 99/72 (81) 99 98.5 I&O Intake and Output 10/13/18 07:00 Intake Total 2240 ml Output Total 1 ml Balance 2239 ml Intake Oral 1240 ml IV Total 1000 ml Output Urine Total 1 ml # Voids 5 General: Alert, Oriented X3, Cooperative, No acute distress Abdomen: Soft, Other (appears nontender on exam this AM) Labs Laboratory Tests Test 10/12/18 04:00 10/12/18 09:39 10/12/18 09:45 10/12/18 10:05 White Blood Count 6.1 x10^3/uL (4.0-11.0) Red Blood Count 4.30 x10^6/uL (3.50-5.40) Hemoglobin 13.0 g/dL (12.0-15.5) Hematocrit 38.8 % (36.0-47.0) Mean Corpuscular Volume 90 fL (79-100) Mean Corpuscular Hemoglobin 30 pg (25-35) Mean Corpuscular Hemoglobin Concent 34 g/dL (31-37) Red Cell Distribution Width 13.1 % (11.5-14.5) Platelet Count 369 x10^3/uL (140-400) Neutrophils (%) (Auto) 36 % (31-73) Lymphocytes (%) (Auto) 49 % (24-48) Monocytes (%) (Auto) 6 % (0-9) Eosinophils (%) (Auto) 7 % (0-3) Basophils (%) (Auto) 1 % (0-3) Neutrophils # (Auto) 2.2 x10^3uL (1.8-7.7) Lymphocytes # (Auto) 3.0 x10^3/uL (1.0-4.8) Monocytes # (Auto) 0.4 x10^3/uL (0.0-1.1) Eosinophils # (Auto) 0.4 x10^3/uL (0.0-0.7) Basophils # (Auto) 0.1 x10^3/uL (0.0-0.2) Sodium Level 145 mmol/L (136-145) Potassium Level 3.5 mmol/L (3.5-5.1) Chloride Level 106 mmol/L (98-107) Carbon Dioxide Level 26 mmol/L (21-32) Anion Gap 13 (6-14) Blood Urea Nitrogen 11 mg/dL (7-20) Creatinine 0.9 mg/dL (0.6-1.0) Estimated GFR (Cockcroft-Gault) 72.6 BUN/Creatinine Ratio 12 (6-20) Glucose Level 86 mg/dL (70-99) Calcium Level 9.0 mg/dL (8.5-10.1) Total Bilirubin 0.5 mg/dL (0.2-1.0) Aspartate Amino Transf (AST/SGOT) 22 U/L (15-37) Alanine Aminotransferase (ALT/SGPT) 39 U/L (14-59) Alkaline Phosphatase 121 U/L (46-116) Total Protein 8.3 g/dL (6.4-8.2) Albumin 4.0 g/dL (3.4-5.0) Albumin/Globulin Ratio 0.9 (1.0-1.7) Thyroid Stimulating Hormone (TSH) 3.172 uIU/mL (0.358-3.74) Urine Opiates Screen Pos (NEG) Urine Methadone Screen Neg (NEG) Urine Barbiturates Neg (NEG) Urine Phencyclidine Screen Neg (NEG) Urine Amphetamine/Methamphetamine Neg (NEG) Urine Benzodiazepines Screen Pos (NEG) Urine Cocaine Screen Pos (NEG) Urine Cannabinoids Screen Pos (NEG) Urine Ethyl Alcohol Neg (NEG) Urine Collection Type Unknown Urine Color Yellow Urine Clarity Clear Urine pH 5.5 Urine Specific [place] 1.025 Urine Protein Negative mg/dL (NEG-TRACE) Urine Glucose (UA) Negative mg/dL (NEG) Urine Ketones (Stick) Negative mg/dL (NEG) Urine Blood Negative (NEG) Urine Nitrite Negative (NEG) Urine Bilirubin Negative (NEG) Urine Urobilinogen Dipstick 0.2 mg/dL (0.2 mg/dL) Urine Leukocyte Esterase Negative (NEG) Urine RBC Occ /HPF (0-2) Urine WBC 5-10 /HPF (0-4) Urine Squamous Epithelial Cells Many /LPF Urine Bacteria Many /HPF (0-FEW) Urine Mucus Marked /LPF Erythrocyte Sedimentation Rate 13 (0-25) Test 10/13/18 03:35 White Blood Count 4.4 x10^3/uL (4.0-11.0) Red Blood Count 3.70 x10^6/uL (3.50-5.40) Hemoglobin 11.3 g/dL (12.0-15.5) Hematocrit 33.2 % (36.0-47.0) Mean Corpuscular Volume 90 fL (79-100) Mean Corpuscular Hemoglobin 31 pg (25-35) Mean Corpuscular Hemoglobin Concent 34 g/dL (31-37) Red Cell Distribution Width 13.2 % (11.5-14.5) Platelet Count 272 x10^3/uL (140-400) Neutrophils (%) (Auto) 34 % (31-73) Lymphocytes (%) (Auto) 47 % (24-48) Monocytes (%) (Auto) 9 % (0-9) Eosinophils (%) (Auto) 9 % (0-3) Basophils (%) (Auto) 1 % (0-3) Neutrophils # (Auto) 1.5 x10^3uL (1.8-7.7) Lymphocytes # (Auto) 2.1 x10^3/uL (1.0-4.8) Monocytes # (Auto) 0.4 x10^3/uL (0.0-1.1) Eosinophils # (Auto) 0.4 x10^3/uL (0.0-0.7) Basophils # (Auto) 0.0 x10^3/uL (0.0-0.2) Laboratory Tests Test 10/12/18 09:39 10/12/18 09:45 10/12/18 10:05 10/13/18 03:35 Urine Opiates Screen Pos (NEG) Urine Methadone Screen Neg (NEG) Urine Barbiturates Neg (NEG) Urine Phencyclidine Screen Neg (NEG) Urine Amphetamine/Methamphetamine Neg (NEG) Urine Benzodiazepines Screen Pos (NEG) Urine Cocaine Screen Pos (NEG) Urine Cannabinoids Screen Pos (NEG) Urine Ethyl Alcohol Neg (NEG) Urine Collection Type Unknown Urine Color Yellow Urine Clarity Clear Urine pH 5.5 Urine Specific [place] 1.025 Urine Protein Negative mg/dL (NEG-TRACE) Urine Glucose (UA) Negative mg/dL (NEG) Urine Ketones (Stick) Negative mg/dL (NEG) Urine Blood Negative (NEG) Urine Nitrite Negative (NEG) Urine Bilirubin Negative (NEG) Urine Urobilinogen Dipstick 0.2 mg/dL (0.2 mg/dL) Urine Leukocyte Esterase Negative (NEG) Urine RBC Occ /HPF (0-2) Urine WBC 5-10 /HPF (0-4) Urine Squamous Epithelial Cells Many /LPF Urine Bacteria Many /HPF (0-FEW) Urine Mucus Marked /LPF Erythrocyte Sedimentation Rate 13 (0-25) White Blood Count 4.4 x10^3/uL (4.0-11.0) Red Blood Count 3.70 x10^6/uL (3.50-5.40) Hemoglobin 11.3 g/dL (12.0-15.5) Hematocrit 33.2 % (36.0-47.0) Mean Corpuscular Volume 90 fL (79-100) Mean Corpuscular Hemoglobin 31 pg (25-35) Mean Corpuscular Hemoglobin Concent 34 g/dL (31-37) Red Cell Distribution Width 13.2 % (11.5-14.5) Platelet Count 272 x10^3/uL (140-400) Neutrophils (%) (Auto) 34 % (31-73) Lymphocytes (%) (Auto) 47 % (24-48) Monocytes (%) (Auto) 9 % (0-9) Eosinophils (%) (Auto) 9 % (0-3) Basophils (%) (Auto) 1 % (0-3) Neutrophils # (Auto) 1.5 x10^3uL (1.8-7.7) Lymphocytes # (Auto) 2.1 x10^3/uL (1.0-4.8) Monocytes # (Auto) 0.4 x10^3/uL (0.0-1.1) Eosinophils # (Auto) 0.4 x10^3/uL (0.0-0.7) Basophils # (Auto) 0.0 x10^3/uL (0.0-0.2) Problem List no surgical plans WBC normal, tolerating diet, benign abdominal exam will defer to GI available as needed ANIRUDH JORGE MD 10/13/18 1959: SURGICAL PROGRESS NOTE Assessment/Plan Agree with above, ok to advance diet, will sign off, please call if we can help in the future YONG ALVARADO APRN Oct 13, 2018 09:25 ANIRUDH JORGE MD Oct 13, 2018 13:53
[2018-10-13] MEDS: POLYETHYLENE GLYCOL 3350 17 GM PACKET. PO PRN (10:42)
[2018-10-13 11:00] VITALS: BP 101/65
--- NOTE | 2018-10-13 11:21 | PDOC ---
Subjective: Subjective: C/o headache. "Stabbing" lower abd pain. No stools. Tolerating PO. Wants to know if she needs a CT or MRI or a scope or any testing. Said yesterday she didn't have H. pylori, now she thinks she might so she's going to call her doctor at . Objective: Objective: Per RN - eats a lot. No records from . Vital Signs: Vital Signs Date Time Temp Pulse Resp B/P (MAP) Pulse Ox O2 Delivery O2 Flow Rate FiO2 10/13/18 08:15 Room Air 10/13/18 07:00 98.5 79 16 99/72 (81) 99 98.5 Labs: Laboratory Tests Test 10/13/18 03:35 White Blood Count 4.4 x10^3/uL Red Blood Count 3.70 x10^6/uL Hemoglobin 11.3 g/dL Hematocrit 33.2 % Mean Corpuscular Volume 90 fL Mean Corpuscular Hemoglobin 31 pg Mean Corpuscular Hemoglobin Concent 34 g/dL Red Cell Distribution Width 13.2 % Platelet Count 272 x10^3/uL Neutrophils (%) (Auto) 34 % Lymphocytes (%) (Auto) 47 % Monocytes (%) (Auto) 9 % Eosinophils (%) (Auto) 9 % Basophils (%) (Auto) 1 % Neutrophils # (Auto) 1.5 x10^3uL Lymphocytes # (Auto) 2.1 x10^3/uL Monocytes # (Auto) 0.4 x10^3/uL Eosinophils # (Auto) 0.4 x10^3/uL Basophils # (Auto) 0.0 x10^3/uL PE: GEN: NAD, was asleep LUNGS: CTAB HEART: RRR ABD: BS+, actually doesn't seem too tender NEURO/PSYCH: A & O 3 A/P: Lower abd pain Loose stools - resolved Borderline dilated appendix w/o inflammation on CT ?h/o PUD and/or H. pylori - EGD last month @ [facility] (also had colonoscopy - records requested but not received), on PPI Substance abuse -- Tolerating PO w/o recurrent diarrhea. Continue PPI and Miralax if she wants. DC per primary/surgery. Can follow-up w/ [facility] or w/ our office to have a breath test re: question of H. pylori infection. SONIA RAMIREZ Oct 13, 2018 11:21
[2018-10-13] MEDS: clonazePAM 1 MG TABLET PO PRN (12:24)
--- NOTE | 2018-10-13 12:27 | PDOC ---
PROGRESS NOTES Chief Complaint Chief Complaint A/P: Abdominal pain - unlikely to be appendicitis, will ADAT. F/u surgery recs. Consult GI Loose stools - no BM last 24 hours Borderline dilated appendix w/o inflammation on CT - she wishes to have her appendix out, I have advised currently against this. ?h/o PUD - EGD last month @ [facility], on PPI - will continue Substance abuse - cocaine returned positive after my initial examination. Possibly had some vasoconstriction related to this causing pain H/o breast cancer - s/p surgery Bipolar - cont meds. There is apparent splitting on examination as she is verbally trying to ask physicians to disagree with one another. I have advised her a second opinion from GI is ok, however her initial request to transfer to [facility] would not be necessary. Can f/u there outpatient FEN - NPO --> Clear liquid diet PPX - SCDs FULL CODE Inpatient for her abdominal pain, nausea, diarrhea. Appreciate GI and surgery input History of Present Illness History of Present Illness 33-year-old female with history of bipolar disease, also has a history of breast cancer in 2014, underwent bilateral mastectomies and reconstructions with multiple procedures. She did not receive any chemotherapy or radiation. Friday, she noted abdominal pain and headaches. She was not having fevers, chills, sweats, nausea, vomiting or diarrhea. Went to [place] where she was found with a CT scan that was performed showing a 7 mm appendix with no inflammatory changes. But appendicitis could not be "ruled out" on radiology report, so the patient was transferred to [facility] for additional evaluation. Her WBC count was normal. She notes her abdominal pain had made her unable to attend work the past 3 days as she has also been having some fecal incontinence. Denies precipitating events and sick contacts. Tox screen +cocaine + cannabinoids. Surgery has seen - exam not c/w appendicitis, recs to monitor and try clears. She would now like to advance her diet beyond clears. She also apparently had an EGD @ [facility] last month showing a gastric ulcer ? w/ recs to take PPI for 6 months. Had colonoscopy in 2017, and apparently also last month. Once given diet order, she began eating voraciously without complaint of abdominal pain, did have cramping after eating, improved with bentyl. Discharged with script and f/u with [facility] as scheduled. Plan: Discharge today Vitals Vitals Vital Signs Date Time Temp Pulse Resp B/P (MAP) Pulse Ox O2 Delivery O2 Flow Rate FiO2 10/13/18 12:24 Room Air 10/13/18 11:00 98.2 80 16 101/65 (77) 99 98.2 Physical Exam General: Alert, Oriented X3, Cooperative, No acute distress Heart: Regular rate Lungs: Clear Abdomen: Soft, Other (appears nontender on exam this AM) Extremities: No clubbing, No cyanosis, No edema, Normal pulses, No tenderness/ swelling Skin: No rashes, No breakdown, No significant lesion Labs LABS Laboratory Tests Test 10/13/18 03:35 White Blood Count 4.4 x10^3/uL (4.0-11.0) Red Blood Count 3.70 x10^6/uL (3.50-5.40) Hemoglobin 11.3 g/dL (12.0-15.5) Hematocrit 33.2 % (36.0-47.0) Mean Corpuscular Volume 90 fL (79-100) Mean Corpuscular Hemoglobin 31 pg (25-35) Mean Corpuscular Hemoglobin Concent 34 g/dL (31-37) Red Cell Distribution Width 13.2 % (11.5-14.5) Platelet Count 272 x10^3/uL (140-400) Neutrophils (%) (Auto) 34 % (31-73) Lymphocytes (%) (Auto) 47 % (24-48) Monocytes (%) (Auto) 9 % (0-9) Eosinophils (%) (Auto) 9 % (0-3) Basophils (%) (Auto) 1 % (0-3) Neutrophils # (Auto) 1.5 x10^3uL (1.8-7.7) Lymphocytes # (Auto) 2.1 x10^3/uL (1.0-4.8) Monocytes # (Auto) 0.4 x10^3/uL (0.0-1.1) Eosinophils # (Auto) 0.4 x10^3/uL (0.0-0.7) Basophils # (Auto) 0.0 x10^3/uL (0.0-0.2) Comment Review of Relevant I have reviewed the following items michael (where applicable) has been applied. Labs Laboratory Tests Test 10/12/18 04:00 10/12/18 09:39 10/12/18 09:45 10/12/18 10:05 White Blood Count 6.1 x10^3/uL (4.0-11.0) Red Blood Count 4.30 x10^6/uL (3.50-5.40) Hemoglobin 13.0 g/dL (12.0-15.5) Hematocrit 38.8 % (36.0-47.0) Mean Corpuscular Volume 90 fL (79-100) Mean Corpuscular Hemoglobin 30 pg (25-35) Mean Corpuscular Hemoglobin Concent 34 g/dL (31-37) Red Cell Distribution Width 13.1 % (11.5-14.5) Platelet Count 369 x10^3/uL (140-400) Neutrophils (%) (Auto) 36 % (31-73) Lymphocytes (%) (Auto) 49 % (24-48) Monocytes (%) (Auto) 6 % (0-9) Eosinophils (%) (Auto) 7 % (0-3) Basophils (%) (Auto) 1 % (0-3) Neutrophils # (Auto) 2.2 x10^3uL (1.8-7.7) Lymphocytes # (Auto) 3.0 x10^3/uL (1.0-4.8) Monocytes # (Auto) 0.4 x10^3/uL (0.0-1.1) Eosinophils # (Auto) 0.4 x10^3/uL (0.0-0.7) Basophils # (Auto) 0.1 x10^3/uL (0.0-0.2) Sodium Level 145 mmol/L (136-145) Potassium Level 3.5 mmol/L (3.5-5.1) Chloride Level 106 mmol/L (98-107) Carbon Dioxide Level 26 mmol/L (21-32) Anion Gap 13 (6-14) Blood Urea Nitrogen 11 mg/dL (7-20) Creatinine 0.9 mg/dL (0.6-1.0) Estimated GFR (Cockcroft-Gault) 72.6 BUN/Creatinine Ratio 12 (6-20) Glucose Level 86 mg/dL (70-99) Calcium Level 9.0 mg/dL (8.5-10.1) Total Bilirubin 0.5 mg/dL (0.2-1.0) Aspartate Amino Transf (AST/SGOT) 22 U/L (15-37) Alanine Aminotransferase (ALT/SGPT) 39 U/L (14-59) Alkaline Phosphatase 121 U/L (46-116) Total Protein 8.3 g/dL (6.4-8.2) Albumin 4.0 g/dL (3.4-5.0) Albumin/Globulin Ratio 0.9 (1.0-1.7) Thyroid Stimulating Hormone (TSH) 3.172 uIU/mL (0.358-3.74) Urine Opiates Screen Pos (NEG) Urine Methadone Screen Neg (NEG) Urine Barbiturates Neg (NEG) Urine Phencyclidine Screen Neg (NEG) Urine Amphetamine/Methamphetamine Neg (NEG) Urine Benzodiazepines Screen Pos (NEG) Urine Cocaine Screen Pos (NEG) Urine Cannabinoids Screen Pos (NEG) Urine Ethyl Alcohol Neg (NEG) Urine Collection Type Unknown Urine Color Yellow Urine Clarity Clear Urine pH 5.5 Urine Specific [place] 1.025 Urine Protein Negative mg/dL (NEG-TRACE) Urine Glucose (UA) Negative mg/dL (NEG) Urine Ketones (Stick) Negative mg/dL (NEG) Urine Blood Negative (NEG) Urine Nitrite Negative (NEG) Urine Bilirubin Negative (NEG) Urine Urobilinogen Dipstick 0.2 mg/dL (0.2 mg/dL) Urine Leukocyte Esterase Negative (NEG) Urine RBC Occ /HPF (0-2) Urine WBC 5-10 /HPF (0-4) Urine Squamous Epithelial Cells Many /LPF Urine Bacteria Many /HPF (0-FEW) Urine Mucus Marked /LPF Erythrocyte Sedimentation Rate 13 (0-25) Test 10/13/18 03:35 White Blood Count 4.4 x10^3/uL (4.0-11.0) Red Blood Count 3.70 x10^6/uL (3.50-5.40) Hemoglobin 11.3 g/dL (12.0-15.5) Hematocrit 33.2 % (36.0-47.0) Mean Corpuscular Volume 90 fL (79-100) Mean Corpuscular Hemoglobin 31 pg (25-35) Mean Corpuscular Hemoglobin Concent 34 g/dL (31-37) Red Cell Distribution Width 13.2 % (11.5-14.5) Platelet Count 272 x10^3/uL (140-400) Neutrophils (%) (Auto) 34 % (31-73) Lymphocytes (%) (Auto) 47 % (24-48) Monocytes (%) (Auto) 9 % (0-9) Eosinophils (%) (Auto) 9 % (0-3) Basophils (%) (Auto) 1 % (0-3) Neutrophils # (Auto) 1.5 x10^3uL (1.8-7.7) Lymphocytes # (Auto) 2.1 x10^3/uL (1.0-4.8) Monocytes # (Auto) 0.4 x10^3/uL (0.0-1.1) Eosinophils # (Auto) 0.4 x10^3/uL (0.0-0.7) Basophils # (Auto) 0.0 x10^3/uL (0.0-0.2) Laboratory Tests Test 10/13/18 03:35 White Blood Count 4.4 x10^3/uL (4.0-11.0) Red Blood Count 3.70 x10^6/uL (3.50-5.40) Hemoglobin 11.3 g/dL (12.0-15.5) Hematocrit 33.2 % (36.0-47.0) Mean Corpuscular Volume 90 fL (79-100) Mean Corpuscular Hemoglobin 31 pg (25-35) Mean Corpuscular Hemoglobin Concent 34 g/dL (31-37) Red Cell Distribution Width 13.2 % (11.5-14.5) Platelet Count 272 x10^3/uL (140-400) Neutrophils (%) (Auto) 34 % (31-73) Lymphocytes (%) (Auto) 47 % (24-48) Monocytes (%) (Auto) 9 % (0-9) Eosinophils (%) (Auto) 9 % (0-3) Basophils (%) (Auto) 1 % (0-3) Neutrophils # (Auto) 1.5 x10^3uL (1.8-7.7) Lymphocytes # (Auto) 2.1 x10^3/uL (1.0-4.8) Monocytes # (Auto) 0.4 x10^3/uL (0.0-1.1) Eosinophils # (Auto) 0.4 x10^3/uL (0.0-0.7) Basophils # (Auto) 0.0 x10^3/uL (0.0-0.2) Medications Current Medications Sodium Chloride 1,000 ml @ 120 mls/hr [id number] IV Last administered on 10/12/18 09:04; Start 10/12/18 at 00:30; Stop 10/12/18 at 10:28; Status DC Hydromorphone HCl (Dilaudid) 1 mg PRN Q4HRS PRN IV SEVERE PAIN Last administered on 10/13/18 07:40; Start 10/12/18 at 00:15 Ondansetron HCl (Zofran) 4 mg PRN Q4HRS PRN IV NAUSEA/VOMITING 1ST CHOICE Last administered on 10/13/18 03:17; Start 10/12/18 at 00:15 Clonazepam (KlonoPIN) 1 mg PRN TID PRN PO ANXIETY / AGITATION Last administered on 10/13/18 12:24; Start 10/12/18 at 00:15 Lurasidone HCl (Latuda) 40 mg HS PO ; Start 10/12/18 at 21:00 Ondansetron HCl (Zofran Odt) 4 mg PRN BID PRN PO NAUSEA/VOMITING; Start at 08:00 Oxycodone/ Acetaminophen (Percocet 5/325) 1 tab QID PO Last administered on 10/13 12:24; Start 10/12/18 at 09:00 Trazodone HCl (Desyrel) 75 mg HS PO Last administered on 10/12/18 22:10; Start 10/12/18 at 21:00 Pantoprazole Sodium (Protonix) 40 mg DAILYAC PO Last administered on 10/13/18 07:34; Start 10/12/18 at 16:30 Polyethylene Glycol (miraLAX PACKET) 17 gm PRN DAILY PRN PO CONSTIPATION Last administered on 10/13/18 10:42; Start 10/12/18 at 13:15 Active Scripts Active Reported Klonopin (Clonazepam) 1 Mg Tablet 1 Mg PO PRN TID PRN Vitals/I & O Vital Sign - Last 24 Hours 10/12/18 10/12/18 10/12/18 10/12/18 15:00 16:45 19:25 20:00 Temp 97.6 98.6 97.6 98.6 Pulse 81 91 Resp 18 16 B/P (MAP) 106/81 (89) 104/69 (81) Pulse Ox 100 98 O2 Delivery Room Air Room Air Room Air Room Air 10/12/18 10/12/18 10/12/18 10/12/18 20:04 22:11 23:12 23:26 Temp 97.6 97.6 Pulse 83 Resp 17 B/P (MAP) 103/65 (78) Pulse Ox 98 98 98 98 O2 Delivery Room Air Room Air Room Air Room Air 10/13/18 10/13/18 10/13/18 10/13/18 03:17 03:21 03:50 07:00 Temp 98.4 98.5 98.4 98.5 Pulse 65 79 Resp 16 16 B/P (MAP) 97/68 (78) 99/72 (81) Pulse Ox 98 100 100 99 O2 Delivery Room Air Room Air Room Air 10/13/18 10/13/18 10/13/18 10/13/18 07:35 07:40 08:15 11:00 Temp 98.2 98.2 Pulse 80 Resp 16 B/P (MAP) 101/65 (77) Pulse Ox 99 O2 Delivery Room Air Room Air Room Air Room Air 10/13/18 12:24 O2 Delivery Room Air Intake and Output 10/12/18 10/12/18 10/13/18 15:00 23:00 07:00 Intake Total 250 ml 450 ml 1540 ml Output Total 1 ml Balance 250 ml 450 ml 1539 ml LAITH HEWITT MD Oct 13, 2018 12:27
--- NOTE | 2018-10-13 13:18 | NUR ---
SW following. Discussed with RN. SW spoke with [facility] team, per PAT team, pt told her to leave the room and stated she had her mental health and drug use under control. MALAIKA [facility] but is not sure if pt has followed up with any recommendations. MALAIKA reported pt's mom takes care of pt's children. RN advised no SW needs at this time, possible discharge home today. Addendum: 10/13/18 at 1344 by HEATHER VILLARREAL SW SW met with pt to discuss SW referral. Pt reported she does not need SW anymore and advised she already has an individual therapist and is working on med management with therapist. Pt denied any SW needs. Anticipate DC today. RN notified.
[2018-10-13] MEDS ORDERED: LURA40TA PO (13:57)
[2018-10-13] MEDS ORDERED: DICY10CA3 PO (13:57)
[2018-10-13] MEDS ORDERED: Pantoprazole PO (13:57)
--- NOTE | 2018-10-13 14:05 | PDOC3 ---
Discharge Summary Visit Information Date of Admission: Oct 11, 2018 Date of Discharge: Oct 13, 2018 Admitting Diagnosis: Intractable abdominal pain Final Diagnosis Intractable abdominal pain Brief Hospital Course Allergies Allergies Coded Allergies Type Severity Reaction Last Updated Verified vancomycin Adverse Reaction Intermediate Rash 10/10/16 Yes Vital Signs Vital Signs Date Time Temp Pulse Resp B/P (MAP) Pulse Ox O2 Delivery O2 Flow Rate FiO2 10/13/18 13:28 Room Air 10/13/18 11:00 98.2 80 16 101/65 (77) 99 98.2 Lab Results Laboratory Tests Test 10/12/18 04:00 10/12/18 09:39 10/12/18 09:45 10/12/18 10:05 White Blood Count 6.1 x10^3/uL (4.0-11.0) Red Blood Count 4.30 x10^6/uL (3.50-5.40) Hemoglobin 13.0 g/dL (12.0-15.5) Hematocrit 38.8 % (36.0-47.0) Mean Corpuscular Volume 90 fL (79-100) Mean Corpuscular Hemoglobin 30 pg (25-35) Mean Corpuscular Hemoglobin Concent 34 g/dL (31-37) Red Cell Distribution Width 13.1 % (11.5-14.5) Platelet Count 369 x10^3/uL (140-400) Neutrophils (%) (Auto) 36 % (31-73) Lymphocytes (%) (Auto) 49 % (24-48) Monocytes (%) (Auto) 6 % (0-9) Eosinophils (%) (Auto) 7 % (0-3) Basophils (%) (Auto) 1 % (0-3) Neutrophils # (Auto) 2.2 x10^3uL (1.8-7.7) Lymphocytes # (Auto) 3.0 x10^3/uL (1.0-4.8) Monocytes # (Auto) 0.4 x10^3/uL (0.0-1.1) Eosinophils # (Auto) 0.4 x10^3/uL (0.0-0.7) Basophils # (Auto) 0.1 x10^3/uL (0.0-0.2) Sodium Level 145 mmol/L (136-145) Potassium Level 3.5 mmol/L (3.5-5.1) Chloride Level 106 mmol/L (98-107) Carbon Dioxide Level 26 mmol/L (21-32) Anion Gap 13 (6-14) Blood Urea Nitrogen 11 mg/dL (7-20) Creatinine 0.9 mg/dL (0.6-1.0) Estimated GFR (Cockcroft-Gault) 72.6 BUN/Creatinine Ratio 12 (6-20) Glucose Level 86 mg/dL (70-99) Calcium Level 9.0 mg/dL (8.5-10.1) Total Bilirubin 0.5 mg/dL (0.2-1.0) Aspartate Amino Transf (AST/SGOT) 22 U/L (15-37) Alanine Aminotransferase (ALT/SGPT) 39 U/L (14-59) Alkaline Phosphatase 121 U/L (46-116) Total Protein 8.3 g/dL (6.4-8.2) Albumin 4.0 g/dL (3.4-5.0) Albumin/Globulin Ratio 0.9 (1.0-1.7) Thyroid Stimulating Hormone (TSH) 3.172 uIU/mL (0.358-3.74) Urine Opiates Screen Pos (NEG) Urine Methadone Screen Neg (NEG) Urine Barbiturates Neg (NEG) Urine Phencyclidine Screen Neg (NEG) Urine Amphetamine/Methamphetamine Neg (NEG) Urine Benzodiazepines Screen Pos (NEG) Urine Cocaine Screen Pos (NEG) Urine Cannabinoids Screen Pos (NEG) Urine Ethyl Alcohol Neg (NEG) Urine Collection Type Unknown Urine Color Yellow Urine Clarity Clear Urine pH 5.5 Urine Specific Hermon 1.025 Urine Protein Negative mg/dL (NEG-TRACE) Urine Glucose (UA) Negative mg/dL (NEG) Urine Ketones (Stick) Negative mg/dL (NEG) Urine Blood Negative (NEG) Urine Nitrite Negative (NEG) Urine Bilirubin Negative (NEG) Urine Urobilinogen Dipstick 0.2 mg/dL (0.2 mg/dL) Urine Leukocyte Esterase Negative (NEG) Urine RBC Occ /HPF (0-2) Urine WBC 5-10 /HPF (0-4) Urine Squamous Epithelial Cells Many /LPF Urine Bacteria Many /HPF (0-FEW) Urine Mucus Marked /LPF Erythrocyte Sedimentation Rate 13 (0-25) Test 10/13/18 03:35 White Blood Count 4.4 x10^3/uL (4.0-11.0) Red Blood Count 3.70 x10^6/uL (3.50-5.40) Hemoglobin 11.3 g/dL (12.0-15.5) Hematocrit 33.2 % (36.0-47.0) Mean Corpuscular Volume 90 fL (79-100) Mean Corpuscular Hemoglobin 31 pg (25-35) Mean Corpuscular Hemoglobin Concent 34 g/dL (31-37) Red Cell Distribution Width 13.2 % (11.5-14.5) Platelet Count 272 x10^3/uL (140-400) Neutrophils (%) (Auto) 34 % (31-73) Lymphocytes (%) (Auto) 47 % (24-48) Monocytes (%) (Auto) 9 % (0-9) Eosinophils (%) (Auto) 9 % (0-3) Basophils (%) (Auto) 1 % (0-3) Neutrophils # (Auto) 1.5 x10^3uL (1.8-7.7) Lymphocytes # (Auto) 2.1 x10^3/uL (1.0-4.8) Monocytes # (Auto) 0.4 x10^3/uL (0.0-1.1) Eosinophils # (Auto) 0.4 x10^3/uL (0.0-0.7) Basophils # (Auto) 0.0 x10^3/uL (0.0-0.2) Laboratory Tests Test 10/13/18 03:35 White Blood Count 4.4 x10^3/uL (4.0-11.0) Red Blood Count 3.70 x10^6/uL (3.50-5.40) Hemoglobin 11.3 g/dL (12.0-15.5) Hematocrit 33.2 % (36.0-47.0) Mean Corpuscular Volume 90 fL (79-100) Mean Corpuscular Hemoglobin 31 pg (25-35) Mean Corpuscular Hemoglobin Concent 34 g/dL (31-37) Red Cell Distribution Width 13.2 % (11.5-14.5) Platelet Count 272 x10^3/uL (140-400) Neutrophils (%) (Auto) 34 % (31-73) Lymphocytes (%) (Auto) 47 % (24-48) Monocytes (%) (Auto) 9 % (0-9) Eosinophils (%) (Auto) 9 % (0-3) Basophils (%) (Auto) 1 % (0-3) Neutrophils # (Auto) 1.5 x10^3uL (1.8-7.7) Lymphocytes # (Auto) 2.1 x10^3/uL (1.0-4.8) Monocytes # (Auto) 0.4 x10^3/uL (0.0-1.1) Eosinophils # (Auto) 0.4 x10^3/uL (0.0-0.7) Basophils # (Auto) 0.0 x10^3/uL (0.0-0.2) Brief Hospital Course 33-year-old female with history of bipolar disease, also has a history of breast cancer in 2014, underwent bilateral mastectomies and reconstructions with multiple procedures. She did not receive any chemotherapy or radiation. Friday, she noted abdominal pain and headaches. She was not having fevers, chills, sweats, nausea, vomiting or diarrhea. Went to [place] where she was found with a CT scan that was performed showing a 7 mm appendix with no inflammatory changes. But appendicitis could not be "ruled out" on radiology report, so the patient was transferred to [facility] for additional evaluation. Her WBC count was normal. She notes her abdominal pain had made her unable to attend work the past 3 days as she has also been having some fecal incontinence. Denies precipitating events and sick contacts. Tox screen +cocaine + cannabinoids. Surgery has seen - exam not c/w appendicitis, recs to monitor and try clears. She would now like to advance her diet beyond clears. She also apparently had an EGD @ [facility] last month showing a gastric ulcer ? w/ recs to take PPI for 6 months. Had colonoscopy in 2017, and apparently also last month. She ate voraciously on day 3 of hospitalization and her cramping improved with her bentyl dosing Greater than 30 minutes spent on discharge including medical records ordering from [facility] and coordination with [place] A/P: Abdominal pain - unlikely to be appendicitis, ADAT. F/u surgery recs. Consulted GI - f/u with [facility] outpatient Loose stools - no BM last 24 hours, formed prior to d/c Borderline dilated appendix w/o inflammation on CT - she wishes to have her appendix out, I have advised currently against this. ?h/o PUD - EGD last month @ [facility], on PPI - will continue Substance abuse - cocaine returned positive after my initial examination. Possibly had some vasoconstriction related to this causing pain H/o breast cancer - s/p surgery Bipolar - cont meds. There is apparent splitting on examination as she is verbally trying to ask physicians to disagree with one another. I have advised her a second opinion from GI is ok, however her initial request to transfer to [facility] would not be necessary. Can f/u there outpatient Discharge Information Condition at Discharge: Improved Follow Up: Weeks (2) Disposition/Orders: D/C to Home Scheduled Lurasidone Hcl (Latuda) 40 Mg Tablet, 40 MG PO HS for BP for 30 Days, #30 Prescribed by: LAITH HEWITT MD on 10/13/18 4324 [Pantoprazole] 40 MG TABLET.DR, 40 MG PO DAILYAC for GERD for 30 Days, #30 Prescribed by: LAITH HEWITT MD on 10/13/18 7109 Scheduled PRN Clonazepam (Klonopin) 1 Mg Tablet, 1 MG PO PRN TID PRN for ANXIETY, (Reported) Entered as Reported by: DENNY ROJAS on 10/02/16 6556 Last Action: Edited on 10/12/18 8278 by Makenzie Roach Dicyclomine Hcl (Dicyclomine Hcl) 10 Mg Capsule, 1 CAP PO PRN Q6HRS PRN for stomach cramping for 30 Days, #100 Ref 3 Prescribed by: LAITH HEWITT MD on 10/13/18 0329 LAITH HEWITT MD Oct 13, 2018 14:05
[2018-10-13 15:00] VITALS: BP 130/78
--- NOTE | 2018-10-13 16:40 | NUR ---
Pt discharged home by cab service payed by hospital. Pt verbalized her disagreement with discharge and stated she did not feel her needs were addressed. Pt signed discharge paperwork but refused to take the copy with her. No changes from previous assessment.
== END 2018-10-13 16:40 | disposition home or self-care (01) | DRG 918 ==
LOC: 4 NORTH 23:41
PROVIDERS: ADMIT Family Medicine; ATTEND Family Medicine
DX: T40.5X1A Poisoning by cocaine, accidental (unintentional), initial encounter (principal); I73.89 Other specified peripheral vascular diseases; F41.9 Anxiety disorder, unspecified; F17.210 Nicotine dependence, cigarettes, uncomplicated; F31.9 Bipolar disorder, unspecified; I10 Essential (primary) hypertension; K52.9 Noninfective gastroenteritis and colitis, unspecified; K64.8 Other hemorrhoids; N80.9 Endometriosis, unspecified; N99.3 Prolapse of vaginal vault after hysterectomy; Z82.49 Family history of ischemic heart disease and other diseases of the circulatory system; Z85.3 Personal history of malignant neoplasm of breast; Z87.11 Personal history of peptic ulcer disease; Z90.13 Acquired absence of bilateral breasts and nipples; Z83.3 Family history of diabetes mellitus; F14.188 Cocaine abuse with other cocaine-induced disorder
CPT/HCPCS: 36415; 80053; 80307; 81001; 84443; 85025; 85651; 87086; 87641; J1170; J2405; J7030

== ENCOUNTER 2019-01-25 09:23 | Emergency (ER) | payer OTHER ==
[~2019-01-25] VITALS: Ht 160 cm; Wt 84.8 kg
[~2019-01-25 09:23] MED LIST changes: +DICY10CA3 PO; +Pantoprazole PO
[2019-01-25 09:53] VITALS: BP 154/96
--- NOTE | 2019-01-25 10:06 | PHYS DOC ---
Past Medical History Past Medical History: Cancer Additional Past Medical Histor: BREAST CA REMISSION, DISASSOCIATIVE PERSONALITY DISORDER Past Surgical History: Cancer Surgery, Hysterectomy Additional Past Surgical Histo: BILATERAL MASTECTOMY, ORAL SX, RIGHT LYMPH NODE REMOVAL Alcohol Use: None Drug Use: None Adult General Chief Complaint Chief Complaint: HEADACHE HPI HPI Patient is a 33 year old female with history of migraine headaches presented to ER today for evaluation of headache since 4 AM this morning. Patient said this is her typical migraine headache, associated with no fever or neck pain, no neck stiffness. Patient said the light and noise makes her headache worse. Review of Systems Review of Systems Constitutional: Denies fever or chills [] Eyes: Denies change in visual acuity, redness, or eye pain [] HENT: Denies nasal congestion or sore throat [] Respiratory: Denies cough or shortness of breath [] Cardiovascular: No additional information not addressed in HPI [] GI: Denies abdominal pain, nausea, vomiting, bloody stools or diarrhea [] : Denies dysuria or hematuria [] Musculoskeletal: Denies back pain or joint pain [] Integument: Denies rash or skin lesions [] Neurologic: POSITIVE FOR headache, no focal weakness or sensory changes [] Endocrine: Denies polyuria or polydipsia [] All other systems were reviewed and found to be within normal limits, except as documented in this note. Current Medications Current Medications Current Medications Medications (Trade) Dose Ordered Sig/Fredy Start Time Stop Time Status Last Admin Dose Admin Diphenhydramine HCl (Benadryl) 50 mg 1X ONCE 01/25/19 10:15 01/25/19 10:16 DC 01/25/19 10:16 50 MG Ketorolac Tromethamine (Toradol Im) 60 mg 1X ONCE 01/25/19 10:15 01/25/19 10:16 DC 01/25/19 10:18 60 MG Allergies Allergies Allergies Coded Allergies Type Severity Reaction Last Updated Verified vancomycin Adverse Reaction Intermediate Rash 10/10/16 Yes Physical Exam Physical Exam Constitutional: Well developed, well nourished, no acute distress, non-toxic appearance. [] HENT: Normocephalic, atraumatic, bilateral external ears normal, oropharynx moist, no oral exudates, nose normal. [] Eyes: PERRLA, EOMI, conjunctiva normal, no discharge. [] Neck: Normal range of motion, no tenderness, supple, no stridor. [] Cardiovascular:Heart rate regular rhythm, no murmur [] Lungs & Thorax: Bilateral breath sounds clear to auscultation [] Abdomen: Bowel sounds normal, soft, no tenderness, no masses, no pulsatile masses. [] Skin: Warm, dry, no erythema, no rash. [] Back: No tenderness, no CVA tenderness. [] Extremities: No tenderness, no cyanosis, no clubbing, ROM intact, no edema. [] Neurologic: Alert and oriented X 3, normal motor function, normal sensory function, no focal deficits noted. [] Psychologic: Affect normal, judgement normal, mood normal. [] Current Patient Data Vital Signs Vital Signs Date Time Temp Pulse Resp B/P (MAP) Pulse Ox O2 Delivery O2 Flow Rate FiO2 01/25/19 09:53 97.9 95 18 154/96 (115) 98 Room Air 97.9 EKG EKG [] Radiology/Procedures Radiology/Procedures [] Course & Med Decision Making Course & Med Decision Making Pertinent Labs and Imaging studies reviewed. (See chart for details) [] Dragon Disclaimer Dragon Disclaimer This electronic medical record was generated, in whole or in part, using a voice recognition dictation system. Departure Departure Impression: Primary Impression: Headache Disposition: 01 HOME, SELF-CARE Condition: IMPROVED Referrals: UNKNOWN PCP NAME (PCP) follow up with your doctor in 2 days for reevaluation. Patient Instructions: General Headache Without Cause OMER MAST DO Jan 25, 2019 10:06
[2019-01-25] MEDS ORDERED: KETOROLAC 60 MG/2 ML VIAL. IM ONE (10:15)
[2019-01-25] MEDS ORDERED: diphenhydrAMINE 50 MG/ML VIAL IM ONE (10:15)
== END 2019-01-25 11:07 | disposition home or self-care (01) ==
LOC: ER 09:23
DX: G43.909 Migraine, unspecified, not intractable, without status migrainosus (principal); Z90.710 Acquired absence of both cervix and uterus; Z90.13 Acquired absence of bilateral breasts and nipples; Z88.1 Allergy status to other antibiotic agents
CPT/HCPCS: 96372; 99284; J1200; J1885